=== PATIENT | female | born 1940 | race Caucasian/White ===

== ENCOUNTER 2016-11-27 17:48 | Inpatient (IN) ==
[2016-11-27] MEDS ORDERED: ONDANSETRON 4 MG/2 ML VIAL IV STA (19:45)
[2016-11-27] MEDS ORDERED: PANTOPRAZOLE 40 MG VIAL IV STA (19:45)
[2016-11-27] MEDS ORDERED: SODIUM CHLORIDE 0.9% 500 ML IV STA (19:45)
--- NOTE | 2016-11-27 19:49 | Emergency Department Note ---
IAngle Emily, am scribing for, and in the presence of, Palmer Davis MD 19: 48. Susan Mckeon Charles R, MD, personally performed the services described in this documentation, ascribed by Elsi Barbour in my presence, and it is both accurate and complete 949 . Arrival - Arrival Chief Complaint: Non-Specific Stated Complaint: ANEMIC ED Nursing Triage Note: PT TO TRIAGE VIA WC WITH C/O HAVING ABNORMAL LABS . WAS CALLED BY DR. HAHN OFFICE TODAY AND WAS TOLD THAT H & H WAS LOW. Mode of Arrival: Wheelchair Limitations: No Limitations Source: Patient Time Seen by Provider: 11/27/16 19:22 - History of Present Illness HPI Narrative: Pt is a 76 y/o female who came to ED from Dr. Santiago's office for further evaluation of H&H low. Pt notes having SOB, weakness, and melena recently. She went to ED in [place], [place], on of last week for not moving much air that her home health nurse stated, but nothing was found then. Pt reports being former smoker, quitting 2 years ago, and uses at home O2 daily. Pt does take baby aspirin and Eliquis for Afib. She has pain in left foot after dropping frozen water bottle on top of foot this past weekend. 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 Martinez. Onset (ago): hour(s) Consistency: constant Severity: mild Severity scale (1-10): 3 Quality: fullness Allergies/Adverse Reactions: Allergies Allergy/AdvReac Type Severity Reaction Status Date / Time acetaminophen [From [place]] Allergy ITCHING Verified 11/27/16 18:14 cefuroxime [From Ce[place]in] Allergy ITCHING Verified 11/27/16 18:14 hydrocodone [From [place]] Allergy ITCHING Verified 11/27/16 18:14 ibuprofen Allergy ITCHING Verified 11/27/16 18:14 lisinopril Allergy Swelling Verified 11/27/16 18:14 of Lip/Tongue/Throat Penicillins Allergy Unknown/Unable Verified 11/27/16 18:14 to obtain Home Medications: Home Medications Medication Instructions Recorded Confirmed Type Aspirin EC Tab 81 mg PO QAM 02/28/16 11/27/16 History Dexlansoprazole [Dexilant] 60 mg PO QAM 02/28/16 11/27/16 History Theophylline ER Tab (24 Hr) 400 mg PO QAM 02/28/16 11/27/16 History hydroCHLOROthiazide 25 mg PO QAM 02/28/16 11/27/16 History [Hydrochlorothiazide] lamoTRIgine [Lamotrigine Tab] 25 mg PO BID 02/28/16 11/27/16 History Apixaban [Eliquis] 5 mg PO BID #60 tablet 03/01/16 11/27/16 Rx rOPINIRole [Requip] 0.25 mg PO BEDTIME #30 tablet 03/01/16 11/27/16 Rx Albuterol Sulfate [Ventolin HFA] 1 puff PO Q4H PRN 11/27/16 11/27/16 History Azithromycin [Azithromycin Z Pack] 250 mg PO DIRECTED 11/27/16 11/27/16 History Furosemide Tab [Lasix Tab] 10 mg PO QAM 11/27/16 11/27/16 History Ipratropium/Albuterol Inhaler 2 puff PO QID PRN 11/27/16 11/27/16 History [Combivent Respimat Inhaler] Linaclotide [Linzess] 290 mcg PO QAM 11/27/16 11/27/16 History Pantoprazole Tab [Protonix Tab] 40 mg PO QAM 11/27/16 11/27/16 History Potassium Chloride 10 meq PO BEDTIME 11/27/16 11/27/16 History Tramadol HCl [Tramadol Tab] 50 mg PO TID PRN 11/27/16 11/27/16 History dilTIAZem HCl [Diltiazem ER (24 360 mg PO QAM 11/27/16 11/27/16 History hr)] predniSONE TAB [PredniSONE] 10 mg PO QDX21D 11/27/16 11/27/16 History Review of System - Review of System 12 point system: reviewed and no additional remarkable complaints except as stated - Review of System Constitutional: Present: weakness. Absent: fever Respiratory: Present: respiratory distress. Absent: cough Cardiovascular: Absent: chest pain, dyspnea on exertion Gastrointestinal: Present: melena. Absent: abdominal pain, nausea, vomiting, diarrhea Musculoskeletal: Present: leg pain (left foot pain from dropping water bottle on foot). Absent: arm pain, neck pain Skin: Absent: rash Neurological: Absent: headache Medical,Surgical,& Family Hx - Medical History Cardio: History of: Hypertension Psychological: No history of: Anxiety Disorders, ADHD, Behavior Problems, Bipolar Disorder, Depression, Previous Suicide Attempt, Psychiatric/Substance Abuse Tx, Schizophrenia, Violent Behavior, Psychiatric Problems Neurology: History of: Vertigo No history of: Brain Aneurysm, Cerebral Hemorrhage, Migraine, Peripheral Neuropathy, Seizures HEENT: No history of: Ear Problem, Eye Problem, Dental Problems, Glaucoma, Oral Cancer, HEENT Problems Endocrine: No history of: Adrenal Disease, Diabetes Mellitus (IDDM), Diabetes Mellitus ( NIDDM), Thyroid Disorder, Endocrine Cancer, Endocrine Problems Rheumatology: No history of;: Psoriasis, Sjogrens Respiratory: History of: Asthma, Bronchitis, COPD No history of: Intubation, Obstructive Sleep Apnea, Pulmonary Hypertension, Pneumonia, Lung Cancer, Respiratory Problems Renal: No history of: Renal Failure, Renal Problems Genitourinary: History of: Recurring Urinary Tract Infections No history of: Bladder Problem, Kidney Stones, Genitourinary Cancer Musculoskeletal: History of: Back/Neck Problems No history of: Amputation Hematology: No history of: Anemia, Blood Transfusion Reaction, Bleeding Problems, Clotting Problems, Sickle Cell Disease, Hematologic Cancer, Blood Disorders Other: No history of: Anesthesia Reactions, Anaphylaxis, Cancer, Eczema, HIV, Malignant Hyperthermia, MRSA, Vancomycin-Resistant Enterococci, Skin Problems, Miscellaneous Medical Problems - Surgical History Cardiac Surgeries: Patient Denies: Femoral-Popliteal Bypass Graft, Cardiac Catheterization, Cardiac Surgery, Carotid Endarterectomy, Internal Defibrillator Thoracic Surgeries: Patient denies;: Kidney (Renal Surgery), Lithotripsy, Nephrectomy, Organ Transplant, Lobectomy Neurologic Surgeries: Patient denies: Brain Aneurysm, Cerebral Hemorrhage, Neurologic Surgery HEENT Surgeries: Patient denies: Carotid Endarterectomy, Eye Surgery, Thyroid Surgery, Tonsilectomy & Adenoidectomy Abdominal Surgeries: Surgical HX of: Colonoscopy Patient denies: Abdominal Surgery, Appendectomy, Cholecystectomy Reproductive Surgeries: Surgical HX of;: Tubal Ligation Patient denies;: Cystoscopy, Genitourinary Surgery, Hysterectomy Orthopedic Surgeries: Patient denies;: Implanted Devices, Orthopedic Surgery, Spinal Surgery, Total Hip Replacement - Family History Family History: Reports;: Family Cancer, Family Heart Disease (mother,daughter) , Family Hypertension Denies;: Family Anesthesia Reaction, Family Diabetes, Family Psychiatric Problems, Family Stroke - Social History Smoking Status: Former smoker Frequency of Alcohol Use: None Type of Drug Use: None Marital Status: Single Lives With:: Alone Functional capacity: independent ambulation Exam Vital Signs: Vital Signs Temperature 98.5 F 11/27/16 19:15 Pulse Rate 78 11/27/16 20:47 Respiratory Rate 20 11/27/16 20:47 Blood Pressure 140/95 11/27/16 19:15 O2 Sat by Pulse Oximetry 99 11/27/16 20:47 - General General appearance: alert, in no apparent distress, other (smoker's voice and face) - Head Head exam: Present: atraumatic, normocephalic - Eye Eye exam: Present: PERRL, EOMI - ENT ENT exam: Present: mucous membranes moist. Absent: mucous membranes dry - Neck Neck exam: Present: full ROM - Chest Chest inspection: Present: symmetric chest wall rise (barreled chest) - Respiratory Respiratory exam: Present: rales (at base, bilaterally), rhonchi (bilaterally), wheezes (bilaterally). Absent: normal lung sounds bilaterally (decreased breath sounds, bilaterally) - Cardiovascular Cardiovascular exam: Present: regular rate, normal rhythm, normal heart sounds - Rectal Exam Rectal exam: Present: heme (+) stool - Extremities Exam Extremities exam: Present: full ROM, tenderness ( old ecchymosis on left distal foot). Absent: pedal edema - Neurological Exam Neurological exam: Present: alert, oriented X3, CN II-XII intact. Absent: motor sensory deficit - Psychiatric Psychiatric exam: Present: normal affect, normal mood - Skin Skin exam: Present: warm, dry Course - Consultations Consultation #1: Hospitalist will admit patient Time: 21:28 Results - Labs CBC & BMP: 11/27/16 19:20 11/27/16 19:20 Lab Results: I have reviewed the patients labs Labs: Laboratory Tests 11/27/16 11/27/16 19:20 19:20 WBC 19.2 H RBC 3.16 L Hgb 6.8 L Hct 23.0 L MCV 72.8 L MCH 22 L MCHC 29.6 L Plt Count 396 Lymph % (Auto) 14.7 L Neut # (Auto) 14.1 H [place] # (Auto) 1.8 H Sodium 131 L Potassium 3.1 L Chloride 92 L Carbon Dioxide 33 H Anion Gap 9.1 BUN 20 H Creatinine 0.60 GFR Calculation 84 BUN/Creatinine Ratio 33.00 H Glucose 137 H Calculated Osmolality 266.7 L Calcium 8.7 Magnesium 2.0 Total Bilirubin 0.50 AST 34 ALT 126 H Alkaline Phosphatase 65 Troponin I 0.515 H - Diagnostic Findings Procedure: Abdominal x-ray: report reviewed by me (with complete decub: 1. Fecal impaction. Mild nonspecific gaseous distention of bowel. 2. Atherosclerosis. 3. Possible hepatomegaly.), Chest x-ray: report reviewed by me (Mild cardiomeagly and venous congestion. Chronic lung changes.) Disposition Clinical Impression: COPD (chronic obstructive pulmonary disease), Acute blood loss anemia, Elevated troponin, Atrial fib/flutter, transient, Generalized weakness, Exertional dyspnea, Chronic home O2 dependent, Leukocytosis Case discussed with: patient, patient's family Disposition: Still a Patient Condition: Guarded Time of Disposition: 21:29
[2016-11-27] MEDS ORDERED: ONDANSETRON 4 MG/2 ML VIAL ONE (19:53)
[2016-11-27] MEDS ORDERED: PANTOPRAZOLE 40 MG VIAL IV ONE (19:53)
[2016-11-27 20:07] LABS: Basophils % 0.2 % (0.0-0.8); Eosinophils # 0.1 10*3/uL (0.0-0.87); Eosinophils % 0.4 % (0.00-10.9); Hemoglobin 6.8 GM/DL (12.0-16.0); Immature Granulocytes % 1.7 %; Immature Granulocytes Absolute 0.32 #; Lymphocytes # 2.8 10*3/uL (1.4-4.0); Lymphocytes % 14.7 % (21.3-54.2); Mean Corpuscular HGB Conc 29.6 GM/DL (32-36); Mean Corpuscular Hemoglobin 22 PG (27-34); Mean Corpuscular Volume 72.8 FL (87-102); Mean Platelet Volume 10.8 FL (9.6-12.0); Monocytes # 1.8 10*3/uL (0.11-0.8); Monocytes % 9.3 % (1.7-12.7); Neutrophils # 14.1 10*3/uL (1.4-7.4); Neutrophils % 73.7 % (38.7-73.9); Platelet Count 396 T/CUMM (130-400); Red Blood Count 3.16 MC/CUMM (3.8-5.5); Red Cell Distribution Width 15.6 % (9.3-17.3); White Blood Count 19.2 T/CUMM (4-12)
[2016-11-27 20:13] LABS: INR 1.1
[2016-11-27 20:22] LABS: Albumin 3.7 G/DL (3.4-5.0); Bilirubin,Total 0.5 MG/DL (0.2-1.0); Calcium 8.7 MG/DL (8.5-10.1); Osmolality,Calculated 266.7 MOS/KG (273-304); Potassium 3.1 MMOL/L (3.5-5.1); Total Protein 6.4 G/DL (6.4-8.3)
[2016-11-27 20:23] LABS: Troponin I Only 0.515 NG/ML (0.00-0.045)
--- NOTE | 2016-11-27 20:25 | XRay Report ---
Portable chest. Indication: Shortness of breath. Comparison: February 28, 2016. The heart is enlarged. There is left atrial prominence. There is calcific plaque present within the aortic knob. The pulmonary vasculature is prominent. The lung denise are hyperexpanded. Fibrotic changes are noted, worse in the bases. No pneumothorax. No pleural effusion. Chronic bony changes are noted. Impression: Mild cardiomegaly and venous congestion. Chronic lung changes. PROCEDURE INTERPRETED AT [facility] DEPARTMENT OF RADIOLOGY Final Report Signed by: Dr. Mine Trotter
[2016-11-27] MEDS ORDERED: FUROSEMIDE 40 MG/4 ML VIAL IV STA (20:27)
--- NOTE | 2016-11-27 20:27 | XRay Report ---
Abdomen series complete. Indication: Generalized abdominal pain. There is heavy splenic artery calcification and also calcification within the abdominal aorta. No free air. Possible enlargement of the liver. Mild nonspecific bowel gas pattern, with mild gaseous distention of small and large intestine and a fecal impaction. No abnormal calcifications over the renal outlines. Degenerative changes of the spinal column and hips. Impression: 1. Fecal impaction. Mild nonspecific gaseous distention of bowel. 2. Atherosclerosis. 3. Possible hepatomegaly. PROCEDURE INTERPRETED AT [facility] DEPARTMENT OF RADIOLOGY Final Report Signed by: Dr. Mine Trotter
[2016-11-27] MEDS ORDERED: methylPREDNISolone SOD SUC 125 MG/2 ML VIAL IV STA (20:28)
[2016-11-27] MEDS ORDERED: ALBUTEROL/IPRATROPIUM 3 ML NEB RESP TX STA (20:28)
[2016-11-27] MEDS ORDERED: methylPREDNISolone SOD SUC 125 MG/2 ML VIAL ONE (20:55)
[2016-11-27] MEDS ORDERED: FUROSEMIDE 40 MG/4 ML VIAL ONE (20:55)
[2016-11-27] MEDS ORDERED: POTASSIUM CHLORIDE 20 MEQ TABLET PO STA (21:27)
[2016-11-27] MEDS ORDERED: POTASSIUM CHLORIDE 20 MEQ TABLET PO ONE (21:49)
[2016-11-27] MEDS ORDERED: traMADol 50 MG TABLET PO PRN (22:34)
[2016-11-28] MEDS ORDERED: SODIUM CHLORIDE 0.9% 250 ML IV PRN (00:45)
--- NOTE | 2016-11-28 00:47 | Hospitalist History & Physical ---
Assessment and Plan - Time spent with patient Time spent with patient: Greater than 30 minutes (1) Acute blood loss anemia Status: Acute Assessment and plan: Admit to hospitalist services. Telemetry. She reports black tarry stools x 2 months. Consult GI. Transfuse 2 units PRBC. H/H 1 hour post transfusion. Repeat CBC in am. Current Visit: Yes (2) Elevated troponin Status: Acute Assessment and plan: Likely due to demand ischemia from anemia. Transfuse 2 units PRBC. Serial Troponins. Consult Cardiology. Current Visit: Yes (3) Leukocytosis Status: Acute Assessment and plan: Currently being treated with Z-pack and Prednisone 10 mg PO x 21 days; continue. Repeat CBC in am. Current Visit: Yes (4) Hyperglycemia Status: Acute Assessment and plan: BG was 137 in ED. Patient denies history of DM. Check A1c in am. Current Visit: Yes (5) Hypertension Status: Acute Assessment and plan: Continue home medications. Monitor. Current Visit: Yes (6) COPD (chronic obstructive pulmonary disease) Status: Acute Assessment and plan: Currently being treated with Z-pack and Prednisone 10 mg PO daily x 21 days; Continue. DuoNebs Q4 hours PRN. Current Visit: Yes (7) History of atrial fibrillation Status: Chronic Assessment and plan: Hold Eliquis and ASA. Continue home dose of Cardizem. Telemetry. Current Visit: No (8) DVT prophylaxis Status: Acute Assessment and plan: Active GI bleeding present. Use SCDs. Current Visit: Yes History of Present Illness Chief complaint: Abnormal labs History of present illness: Ms. Stanford is a 76 year old female with a past medical history of HTN, A-fib, COPD, Arthritis, and Asthma [facility] of abnormal labs. Ms. Stanford reports that her PCP, Dr. Santiago, sent her to the ED after her labs showed that she was anemic. She further reports that she has had black stools for the last 2 months and occasional SOB on exertion. She denies chest pain. She uses home O2 and takes Eliquis BID and ASA 81 mg daily for afib. She was recently placed on a Z-pack and prednisone for COPD exacerbation. Her work up in the ED was significant for Heme (+) stool, WBC 19.2, H/H 6.8/23, Na 131, BG 137, and Troponin 0.515. Currently, she has no complaints. Hospitalist services were consulted, and the patient will be admitted for further evaluation and treatment. Home medications were reviewed and reconciled. This patient is a DNR. Home Medications Medication Instructions Recorded Confirmed Type Aspirin EC Tab 81 mg PO QAM 02/28/16 11/27/16 History Dexlansoprazole [Dexilant] 60 mg PO QAM 02/28/16 11/27/16 History Theophylline ER Tab (24 Hr) 400 mg PO QAM 02/28/16 11/27/16 History hydroCHLOROthiazide 25 mg PO QAM 02/28/16 11/27/16 History [Hydrochlorothiazide] lamoTRIgine [Lamotrigine Tab] 25 mg PO BID 02/28/16 11/27/16 History Apixaban [Eliquis] 5 mg PO BID #60 tablet 03/01/16 11/27/16 Rx rOPINIRole [Requip] 0.25 mg PO BEDTIME #30 tablet 03/01/16 11/27/16 Rx Albuterol Sulfate [Ventolin HFA] 1 puff PO Q4H PRN 11/27/16 11/27/16 History Azithromycin [Azithromycin Z Pack] 250 mg PO DIRECTED 11/27/16 11/27/16 History Furosemide Tab [Lasix Tab] 10 mg PO QAM 11/27/16 11/27/16 History Ipratropium/Albuterol Inhaler 2 puff PO QID PRN 11/27/16 11/27/16 History [Combivent Respimat Inhaler] Linaclotide [Linzess] 290 mcg PO QAM 11/27/16 11/27/16 History Pantoprazole Tab [Protonix Tab] 40 mg PO QAM 11/27/16 11/27/16 History Potassium Chloride 10 meq PO BEDTIME 11/27/16 11/27/16 History Tramadol HCl [Tramadol Tab] 50 mg PO TID PRN 11/27/16 11/27/16 History dilTIAZem HCl [Diltiazem ER (24 360 mg PO QAM 11/27/16 11/27/16 History hr)] predniSONE TAB [PredniSONE] 10 mg PO QDX21D 11/27/16 11/27/16 History Allergies Allergy/AdvReac Type Severity Reaction Status Date / Time acetaminophen [From [employer] Allergy ITCHING Verified 11/27/16 18:14 cefuroxime [From Ceftin] Allergy ITCHING Verified 11/27/16 18:14 hydrocodone [From [place]] Allergy ITCHING Verified 11/27/16 18:14 ibuprofen Allergy ITCHING Verified 11/27/16 18:14 lisinopril Allergy Swelling Verified 11/27/16 18:14 of Lip/Tongue/Throat Penicillins Allergy Unknown/Unable Verified 11/27/16 18:14 to obtain Medical,Surgical,& Family Hx - Medical History Cardio: History of: Cardiac Dysrhythmia (afib), Hypertension Neurology: History of: Vertigo Respiratory: History of: Asthma, Bronchitis, COPD Genitourinary: History of: Recurring Urinary Tract Infections Musculoskeletal: History of: Back/Neck Problems, Musculoskeletal Problems ( arthritis) - Surgical History Abdominal Surgeries: Surgical HX of: Colonoscopy (reports cancerous polyp removed. ) Reproductive Surgeries: Surgical HX of;: Tubal Ligation - Family History Family History: Reports;: Family Cancer, Family Heart Disease (mother,daughter) , Family Hypertension - Social History Smoking Status: Former smoker (Reports quitting 2 years ago.) Have you smoked in the last 12 months: No Frequency of Alcohol Use: None Type of Drug Use: None Marital Status: Lives With:: Ex- Functional capacity: uses cane/walker 12 point system: reviewed and no additional remarkable complaints except as stated - Constitutional Constitutional: Absent: fever(s), malaise, weakness - EENT Eyes: Absent: blurry vision, diplopia, loss of vision Ears: Absent: decreased hearing, ear discharge, ear pain Nose, mouth and throat: Absent: headache(s), nasal congestion, sore throat - Cardiovascular Cardiovascular: Present: dyspnea on exertion. Absent: chest pain at rest, chest pain with activity, edema, orthopnea, palpitations - Respiratory Respiratory: Present: cough, dyspnea on exertion, wheezing - Gastrointestinal Gastrointestinal: Present: melena. Absent: abdominal pain, diarrhea, nausea, vomiting - Genitourinary Genitourinary: Absent: dysuria, urinary frequency - Musculoskeletal Musculoskeletal: Present: arthralgias. Absent: joint swelling, muscle weakness , myalgias - Neurological Neurological: Absent: confusion, numbness, paresthesias, syncope - Psychiatric Psychiatric: Absent: anxiety, depression - Endocrine Endocrine: Absent: cold intolerance, polydipsia, polyphagia, polyuria - Hematologic/Lymphatic Hematologic/Lymphatic: Present: easy bruising. Absent: easy bleeding Exam - Constitutional Vitals: Period Temp Pulse Resp BP Sys/Wahl Pulse Ox Last 24 Hr 98.5 F-98.5 F 74-79 17-22 140-140/95-95 94-99 Exam: Constitutional System: Afebrile. Awake, alert and oriented x 3. No distress. No tremulousness. Fidgety. Head: Normocephalic, atraumatic. Ears, Nose and Throat System: No pain or tenderness. No epistaxis or discharge. Eyes System: Pupils equal, round, and reactive. Extraocular muscles intact. Neck: Supple, without adenopathy, No jugular venous distention. No thyromegaly, neck mass, or prior surgery apparent. Respiratory System: Rhonchi and wheezing throughout. Cardiovascular System: Heart with regular rate and rhythm. No murmur. GI System: Abdomen soft, nontender. Normo active bowel sounds present. Musculoskeletal System: Limbs with no pedal edema. Full distal pulses. Normal capillary refill. Bruising on right foot and toes. Neurological System: No discernable sensory deficit. No aphasia Psychiatric System: Conversation is rational Results - Labs CBC & BMP: 11/28/16 01:20 11/28/16 01:20 Lab Results: I have reviewed the past 24 hour labs - Diagnostic Findings Procedure: Abdominal x-ray: report reviewed by me, Chest x-ray: report reviewed by me Quality Measures - VTE Contraindication to Pharmacological VTE Prophylaxis: Active Bleeding
[2016-11-28 01:25] LABS: Basophils % 0.2 % (0.0-0.8); Eosinophils % 0.1 % (0.00-10.9); Hematocrit 24.4 VOL% (35.7-47.0); Hemoglobin 7.1 GM/DL (12.0-16.0); Immature Granulocytes % 2.3 %; Immature Granulocytes Absolute 0.44 #; Lymphocytes # 0.6 10*3/uL (1.4-4.0); Lymphocytes % 3.1 % (21.3-54.2); Mean Corpuscular HGB Conc 29.1 GM/DL (32-36); Mean Corpuscular Hemoglobin 21 PG (27-34); Mean Corpuscular Volume 73.5 FL (87-102); Mean Platelet Volume 10.7 FL (9.6-12.0); Monocytes # 0.3 10*3/uL (0.11-0.8); Monocytes % 1.5 % (1.7-12.7); NRBC # 0.09 10*3/uL; Neutrophils # 17.6 10*3/uL (1.4-7.4); Neutrophils % 92.8 % (38.7-73.9); Platelet Count 430 T/CUMM (130-400); Red Blood Count 3.32 MC/CUMM (3.8-5.5); Red Cell Distribution Width 15.7 % (9.3-17.3)
[2016-11-28] MEDS: ALBUTEROL/IPRATROPIUM 3 ML NEB RESP TX PRN ×2 (01:35→07:50)
[2016-11-28 01:54] LABS: Band Neutrophils 1 % (0-10); Lymphocytes 2 % (20-55); Nucleated Red Blood Cells 1 (0-5); Segmented Neutrophils 97 % (50-85); Total Cells Counted 100
[2016-11-28 01:55] LABS: Anisocytosis 1+; Ovalocytes Few; Platelet Estimate Normal
[2016-11-28 02:00] LABS: Albumin 3.9 G/DL (3.4-5.0); Bilirubin,Total 0.6 MG/DL (0.2-1.0); Calcium 8.9 MG/DL (8.5-10.1); Magnesium 2.2 MG/DL (1.8-2.4); Osmolality,Calculated 272.2 MOS/KG (273-304); Potassium 3.8 MMOL/L (3.5-5.1); Total Protein 6.8 G/DL (6.4-8.3)
--- NOTE | 2016-11-28 06:02 | EKG Report ---
Stationary ECG Study [facility] ER Test Date: 11/27/2016 8:36:31 PM Pat Name: IDANIA POE Department: Room: 289 Gender: F Traffic Administrator: : 1940 Requested by: Palmer Elizabeth Order Number: [id number] Reading MD: UNIQUE MACIEL Intervals [place] Rate: 80 P: 75 GA: 155 QRS: 78 QRSD: 102 T: 79 QT: 364 QTc: 401 Interpretive Statements SINUS RHYTHM WITH OCCASIONAL SUPRAVENTRICULAR PREMATURE COMPLEXES ST DEVIATION AND MODERATE T-WAVE ABNORMALITY, CONSIDER LATERAL ISCHEMIA NOT ON PREVIOUS TRACING FROM 03/01/16 Electronically Signed On 11-30-16 18:51:11 CDT by UNIQUE MACIEL [email or web address]
[2016-11-28] MEDS ORDERED: FUROSEMIDE 40 MG/4 ML VIAL ONE (08:15)
[2016-11-28] MEDS: FUROSEMIDE 40 MG/4 ML VIAL IV SCH (08:23)
[2016-11-28] MEDS ORDERED: FUROSEMIDE 20 MG TABLET PO SCH (09:00)
[2016-11-28] MEDS: predniSONE 10 MG TABLET PO SCH (09:44)
[2016-11-28] MEDS: DILTIAZEM CD 180 MG CAPSULE PO SCH (09:45)
[2016-11-28] MEDS: PANTOPRAZOLE 40 MG TABLET PO SCH (09:45)
[2016-11-28] MEDS: hydroCHLOROthiazide 25 MG TABLET PO SCH (09:48)
[2016-11-28 09:53] LABS: Apearance,Urine CLEAR (Clear); Bilirubin,Urine Negative (Negative); Blood, Urine Moderate mg/dL (Negative); Glucose,Urine (UA) Negative (Negative); Ketones,Urine Negative (Negative); Mucus,Urine Occasional /LPF (Occasional); Nitrite,Urine Negative (Negative); Protein,Urine Negative; RBC,Urine 20 /HPF (0-4); Urine Color Colorless (Yellow); Urine Specific Gravity 1.004 (1.001-1.035); Urine Urobilinogen < 2.0 EU/DL (0.2-1.0); WBC,Urine 1 /HPF (0-6)
[2016-11-28] MEDS: THEOPHYLLINE ER (24 HR) 400 MG TABLET PO SCH (11:08)
[2016-11-28] MEDS: lamoTRIgine 25 MG TABLET PO SCH ×2 (11:08→22:02)
--- NOTE | 2016-11-28 11:22 | Gastrointestinal Consult Note ---
Assessment and Plan (1) Anemia Status: Acute Assessment and plan: 11/28-admitted with low H&H from PCP office with reports of increased fatigue and weakness with shortness of breath over the last several weeks. no prior history of GI bleeding in the past. On Eliquis therapy for atrial fibrillation with last dose on Sunday. H&H 09/01 on admission, now 10/02 post transfusion. Heme positive stools. Obtain endoscopy records from [facility]. Plan an addendum to followed by Dr. Traylor. Current Visit: Yes History of Present Illness Chief complaint: Melena anemia History of present illness: Ms. Stanford is a 76 year old female who was admitted to the hospital on yesterday after findings of a low H&H at her PCP office. Patient has a prior history of hypertension, atrial fibrillation (anticoagulated with Eliquis), COPD, arthritis , and asthma. Patient states that she has not felt well over the last several weeks with increased weakness and fatigue. She also states that she has had dark stools over the last 2 months. Patient recently has had an increase in shortness of breath therefore she presented to see Dr. Santiago for checkup. At that time she was found to have a low H&H and was referred to the emergency room for further evaluation. On admission, patient was found to have an H&H of 09/01. She has a MCV of 72. She was also noted to have elevated troponin therefore placed on telemetry for closer observation. Patient states that she has not been anemic in the past and not require blood transfusions. She states that she has never had a GI bleed before except following a colonoscopy earlier this year. Patient denies any increase in upper GI symptoms including dyspepsia , dysphagia, GERD, increased belching or bloating. Patient is noted to have a 22 pound weight loss since February of this past year however this was warranted and patient states she has been attempting to lose weight by changing her dietary patterns. She is also noted on admission to be on antibiotics for treatment of a sinus infection. She states that she has never had a peptic ulcer in the past however has had upper scope done at [facility]. She was noted to be heme positive in the emergency room as well. Her baseline H&H in February of this past year was noted to be at 14/42. She has received 2 units of packed red blood cells today. Her last colonoscopy reportedly was in April of this year by Dr. Rouse at [facility] in which she had polyps removed. She is noted to be on Eliquis for history of atrial fibrillation and has been on this for approximately 2 years with no prior history of GI bleeding. Her last reported dose was on Sunday. She denies any NSAID use. Home Medications Medication Instructions Recorded Confirmed Type Aspirin EC Tab 81 mg PO QAM 02/28/16 11/27/16 History Dexlansoprazole [Dexilant] 60 mg PO QAM 02/28/16 11/27/16 History Theophylline ER Tab (24 Hr) 400 mg PO QAM 02/28/16 11/27/16 History hydroCHLOROthiazide 25 mg PO QAM 02/28/16 11/27/16 History [Hydrochlorothiazide] lamoTRIgine [Lamotrigine Tab] 25 mg PO BID 02/28/16 11/27/16 History Apixaban [Eliquis] 5 mg PO BID #60 tablet 03/01/16 11/27/16 Rx rOPINIRole [Requip] 0.25 mg PO BEDTIME #30 tablet 03/01/16 11/27/16 Rx Albuterol Sulfate [Ventolin HFA] 1 puff PO Q4H PRN 11/27/16 11/27/16 History Azithromycin [Azithromycin Z Pack] 250 mg PO DIRECTED 11/27/16 11/27/16 History Furosemide Tab [Lasix Tab] 10 mg PO QAM 11/27/16 11/27/16 History Ipratropium/Albuterol Inhaler 2 puff PO QID PRN 11/27/16 11/27/16 History [Combivent Respimat Inhaler] Linaclotide [Linzess] 290 mcg PO QAM 11/27/16 11/27/16 History Pantoprazole Tab [Protonix Tab] 40 mg PO QAM 11/27/16 11/27/16 History Potassium Chloride 10 meq PO BEDTIME 11/27/16 11/27/16 History Tramadol HCl [Tramadol Tab] 50 mg PO TID PRN 11/27/16 11/27/16 History dilTIAZem HCl [Diltiazem ER (24 360 mg PO QAM 11/27/16 11/27/16 History hr)] predniSONE TAB [PredniSONE] 10 mg PO [id number] 11/27/16 11/27/16 History Allergies Allergy/AdvReac Type Severity Reaction Status Date / Time acetaminophen [From [place]] Allergy ITCHING Verified 11/27/16 18:14 cefuroxime [From Ceftin] Allergy ITCHING Verified 11/27/16 18:14 hydrocodone [From [place]] Allergy ITCHING Verified 11/27/16 18:14 ibuprofen Allergy ITCHING Verified 11/27/16 18:14 lisinopril Allergy Swelling Verified 11/27/16 18:14 of Lip/Tongue/Throat Penicillins Allergy Unknown/Unable Verified 11/27/16 18:14 to obtain Medical,Surgical,& Family Hx - Medical History Cardio: History of: Cardiac Dysrhythmia (afib), Hypertension Psychological: No history of: Anxiety Disorders, ADHD, Behavior Problems, Bipolar Disorder, Depression, Previous Suicide Attempt, Psychiatric/Substance Abuse Tx, Schizophrenia, Violent Behavior, Psychiatric Problems Neurology: History of: Vertigo No history of: Brain Aneurysm, Cerebral Hemorrhage, Migraine, Peripheral Neuropathy, Seizures HEENT: No history of: Ear Problem, Eye Problem, Dental Problems, Glaucoma, Oral Cancer, HEENT Problems Endocrine: No history of: Adrenal Disease, Diabetes Mellitus (IDDM), Diabetes Mellitus ( NIDDM), Thyroid Disorder, Endocrine Cancer, Endocrine Problems Rheumatology: No history of;: Psoriasis, Sjogrens Respiratory: History of: Asthma, Bronchitis, COPD No history of: Intubation, Obstructive Sleep Apnea, Pulmonary Hypertension, Pneumonia, Lung Cancer, Respiratory Problems Renal: No history of: Renal Failure, Renal Problems Genitourinary: History of: Recurring Urinary Tract Infections No history of: Bladder Problem, Kidney Stones, Genitourinary Cancer Musculoskeletal: History of: Back/Neck Problems, Musculoskeletal Problems ( arthritis) No history of: Amputation Hematology: No history of: Anemia, Blood Transfusion Reaction, Bleeding Problems, Clotting Problems, Sickle Cell Disease, Hematologic Cancer, Blood Disorders Other: No history of: Anesthesia Reactions, Anaphylaxis, Cancer, Eczema, HIV, Malignant Hyperthermia, MRSA, Vancomycin-Resistant Enterococci, Skin Problems, Miscellaneous Medical Problems - Surgical History Cardiac Surgeries: Patient Denies: Femoral-Popliteal Bypass Graft, Cardiac Catheterization, Cardiac Surgery, Carotid Endarterectomy, Internal Defibrillator Thoracic Surgeries: Patient denies;: Kidney (Renal Surgery), Lithotripsy, Nephrectomy, Organ Transplant, Lobectomy Neurologic Surgeries: Patient denies: Brain Aneurysm, Cerebral Hemorrhage, Neurologic Surgery HEENT Surgeries: Patient denies: Carotid Endarterectomy, Eye Surgery, Thyroid Surgery, Tonsilectomy & Adenoidectomy Abdominal Surgeries: Surgical HX of: Colonoscopy (reports cancerous polyp removed. ) Patient denies: Abdominal Surgery, Appendectomy, Cholecystectomy Reproductive Surgeries: Surgical HX of;: Tubal Ligation Patient denies;: Cystoscopy, Genitourinary Surgery, Hysterectomy Orthopedic Surgeries: Patient denies;: Implanted Devices, Orthopedic Surgery, Spinal Surgery, Total Hip Replacement - Family History Family History: Reports;: Family Cancer, Family Heart Disease (mother,daughter) , Family Hypertension Denies;: Family Anesthesia Reaction, Family Diabetes, Family Psychiatric Problems, Family Stroke - Social History Smoking Status: Former smoker (Reports quitting 2 years ago.) Frequency of Alcohol Use: None Type of Drug Use: None 12 point system: reviewed and no additional remarkable complaints except as stated - Constitutional Constitutional: Present: as per HPI, fatigue, weakness - EENT Eyes: Present: as per HPI Ears: Present: as per HPI Nose, mouth and throat: Present: as per HPI - Cardiovascular Cardiovascular: Present: as per HPI, dyspnea - Respiratory Respiratory: Present: as per HPI - Gastrointestinal Gastrointestinal: Present: as per HPI, melena - Genitourinary Genitourinary: Present: as per HPI - Musculoskeletal Musculoskeletal: Present: as per HPI - Neurological Neurological: Present: as per HPI - Psychiatric Psychiatric: Present: as per HPI - Endocrine Endocrine: Present: as per HPI - Hematologic/Lymphatic Hematologic/Lymphatic: Present: as per HPI Exam - Constitutional Vitals: Period Temp Pulse Resp BP Sys/Wahl Pulse Ox Last 24 Hr 97.6 F-98.9 F 70-97 17-22 98-149/49-95 81-99 General appearance: normal weight, no acute distress - Head Head exam: Present: normal inspection, normocephalic - Eye Eye exam: Present: other (Lids and conjunctivae are unremarkable). Absent: scleral icterus - ENT ENT exam: Present: normal exam, normal oropharynx - Neck Neck exam: Present: normal inspection - Respiratory Respiratory exam: Present: clear to auscultation bilaterally. Absent: rales, rhonchi, wheezes - Cardiovascular Cardiovascular exam: Present: regular rate and rhythm. Absent: diastolic murmur , JVD, systolic murmur - GI/Abdominal GI/Abdominal exam: Present: normal bowel sounds, soft. Absent: ascites, distended, mass, organomegaly, tenderness - Extremities Exam Extremities exam: Present: normal inspection, full ROM - Back Exam Back exam: Present: normal inspection - Neurological Exam Neurological exam: Present: alert, oriented X3 - Psychiatric Psychiatric exam: Present: normal affect, normal mood - Skin Skin exam: Present: normal color, warm, dry Results - Labs CBC & BMP: 11/28/16 01:20 11/28/16 01:20 Lab Results: I have reviewed the past 24 hour labs Quality Measures - VTE Contraindication to Pharmacological VTE Prophylaxis: Active Bleeding - Stroke Symptom Onset Unknown: No
[2016-11-28] MEDS: ALBUTEROL/IPRATROPIUM 3 ML NEB RESP TX SCH ×3 (11:50→20:12)
[2016-11-28 11:58] LABS: Hematocrit 29.3 VOL% (35.7-47.0)
--- NOTE | 2016-11-28 13:43 | Hospitalist Progress Note ---
Assessment and Plan - Time spent with patient Time spent with patient: Less than 30 minutes (1) Anemia Status: Acute Assessment and plan: 11/28/16 Patient received PRBC Post-blood transfusion - H&H is now 9.0 and 29.3. Continue HOLDING Eliquis add humidification to [place] O2 Will repeat a.m. labs GI is following and greatly appreciate their assistance with care. Current Visit: Yes (2) Elevated troponin Status: Acute Assessment and plan: 11/28/16 Troponin upon arrival was 0.515 and it is trending down after receiving PRBCs for symptomatic anemia. Eliquis is being held at present, patient does have chronic A-Fib. Cardiology is following and greatly appreciate their assistance with care. Current Visit: Yes (3) Hyperglycemia Status: Acute Assessment and plan: 11/28/16 Patient denies a history of diabetes. HA1c is 6.5. Will continue to monitor glucose during hospitalization. Current Visit: Yes (4) Chronic anticoagulation Status: Chronic Assessment and plan: 11/28/16 Patient has history of Chronic A-Fib. She presented with anemia and c/ o dark tarry stools. Currently Holding Eliquis at present. Will continue to monitor for any further signs of bleeding. Current Visit: Yes Hospitalist: Subjective Interval history: Ms Stanford seen and chart reviewed. She reports the oxygen is helping but is drying her sinuses out, I will add humidification to supplemental o2. She denies any chest pain, nausea or vomiting. Exam - Constitutional Vitals: Period Temp Pulse Resp BP Sys/Wahl Pulse Ox Last 24 Hr 97.2 F-98.9 F 70-97 17-22 98-151/49-95 81-99 General appearance: normal weight, no acute distress - Head Head exam: Present: normal inspection - Eye Eye exam: Present: EOMI - Neck Neck exam: Present: normal inspection. Absent: thyromegaly - Respiratory Respiratory exam: Present: clear to auscultation bilaterally, prolonged expiratory phase, wheezes (expiratory) - Cardiovascular Cardiovascular exam: Present: regular rate and rhythm - GI/Abdominal GI/Abdominal exam: Present: normal bowel sounds, soft. Absent: tenderness, rebound - Extremities Exam Extremities exam: Present: full ROM. Absent: edema - Neurological Exam Neurological exam: Present: alert, oriented X3 - Psychiatric Psychiatric exam: Present: normal affect, normal mood. Absent: agitated, anxious - Skin Skin exam: Present: normal color, warm, dry Results - Labs CBC & BMP: 11/28/16 11:26 11/28/16 01:20 Lab Results: I have reviewed the past 24 hour labs Quality Measures - VTE Contraindication to Pharmacological VTE Prophylaxis: Active Bleeding - Stroke Symptom Onset Unknown: No
--- NOTE | 2016-11-28 15:55 | Cardiology Consult Note ---
Ozzy Mckeon Lesley, LISBETH, am scribing for, and in the presence of, Joaquin Diaz MD 15:53. Assessment and Plan - Time spent with patient Time spent with patient: Greater than 30 minutes (Record review, assessment, and documentation) (1) Chronic anticoagulation Status: Chronic Assessment and plan: 1. 76-year-old previous smoker (quit less than 2 years ago) with COPD oxygen dependent, admitted February 2016 with atrial fibrillation with RVR which reverted to normal sinus rhythm, now admits with a couple months of intermittent melena, and a number of days of increasing dyspnea on exertion and fatigue with significant anemia with hemoglobin in the 7 range now status post transfusion clinically modestly better. 2. New ST-T change, and mild troponin elevation suggests likely underlying CAD , but would treat medically given her very recent melena 3. She reports she was taking Eliquis and aspirin, obviously both need to be held for now. There is no known history of coronary artery disease or stroke by history. 4. Chads 2 vascular score of 4 5. Leukocytosis with left shift, possibly related to steroid use 6. Patient previously seen by Dr. Robledo 7. We will continue diltiazem, treated with high intensity statin therapy 8. We will follow with you 9. 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 Delatorre Ms. Stanford is a 76 year old female, who presented to [facility] ER from her PCPs clinic after abnormal labs. She reported black tarry stools for the last 2 months with worsening dyspnea on exertion. She denies chest pain. She has a history of COPD and is on home oxygen. She reports she was recently treated for COPD exacerbation with an antibiotic and steroids. She was taking Eliquis for a history of paroxysmal atrial fibrillation, and had no history of GI bleeds. Cardiac history is significant for hypertension, oxygen dependent COPD, paroxysmal atrial fibrillation with RVR, advanced age, sedentary lifestyle. The patient is known to Dr. Delatorre and was last seen at [facility] clinic 06/2016. Most recent echocardiogram done 02/2016 revealed moderate concentric left ventricular hypertrophy with diastolic dysfunction, LVEF estimated at greater than 55%, right atrium mildly enlarged, mildly thickened mitral valve with mild mitral regurgitation, trace aortic valve regurgitation, moderate tricuspid valve regurgitation, PAP 32.7. The patient was seen sitting on side of the bed today, she reports feeling much better. She denies chest pain, but reports increased dyspnea with exertion over the last 1-2 months. She admits black tarry stools for 2 months. The patient is on oxygen at home for her COPD. She no longer smokes, and states she quit sometime ago. The patient has been on Eliquis for some time due to paroxysmal atrial fibrillation. She was admitted with a hemoglobin of 6.8, hematocrit 23. INR was 1.1, sodium 131, potassium 3.1, creatinine 0.6, glucose 137, magnesium 2.0, troponin I 0.515. This was the peak troponin, and it has been trending downward. After 2 units of packed red cells, her hemoglobin and hematocrit have increased to 7/24. Vital signs have remained stable, EKG shows sinus rhythm with PVCs. Abdominal x-ray shows fecal impaction, possible hepatomegaly. Chest x-ray shows mild cardiomegaly and venous congestion, chronic lung changes. The patient complains of bilateral lower extremity edema that has worsened over the last 2-3 weeks. IMPRESSION/PLAN: 1. ELEVATED TROPONIN -likely due to demand ischemia from anemia. Trending downward and no anginal symptoms. 2. CHRONIC ANTICOAGULATION -holding Eliquis and aspirin, likely no longer be a candidate for anticoagulation. 3. HISTORY OF ATRIAL FIBRILLATION WITH RVR -continue diltiazem, currently in sinus rhythm, will continue to monitor patient on telemetry floor. 4. ANEMIA -H&H 9 and 29 post transfusion, black tarry stools 2 months. GI is consulted to follow. CC: Chato Dunbar MD - Home Medications and Allergies Home Medications: Home Medications Medication Instructions Recorded Confirmed Type Aspirin EC Tab 81 mg PO QAM 02/28/16 11/27/16 History Dexlansoprazole [Dexilant] 60 mg PO QAM 02/28/16 11/27/16 History Theophylline ER Tab (24 Hr) 400 mg PO QAM 02/28/16 11/27/16 History hydroCHLOROthiazide 25 mg PO QAM 02/28/16 11/27/16 History [Hydrochlorothiazide] lamoTRIgine [Lamotrigine Tab] 25 mg PO BID 02/28/16 11/27/16 History Apixaban [Eliquis] 5 mg PO BID #60 tablet 03/01/16 11/27/16 Rx rOPINIRole [Requip] 0.25 mg PO BEDTIME #30 tablet 03/01/16 11/27/16 Rx Albuterol Sulfate [Ventolin HFA] 1 puff PO Q4H PRN 11/27/16 11/27/16 History Azithromycin [Azithromycin Z Pack] 250 mg PO DIRECTED 11/27/16 11/27/16 History Furosemide Tab [Lasix Tab] 10 mg PO QAM 11/27/16 11/27/16 History Ipratropium/Albuterol Inhaler 2 puff PO QID PRN 11/27/16 11/27/16 History [Combivent Respimat Inhaler] Linaclotide [Linzess] 290 mcg PO QAM 11/27/16 11/27/16 History Pantoprazole Tab [Protonix Tab] 40 mg PO QAM 11/27/16 11/27/16 History Potassium Chloride 10 meq PO BEDTIME 11/27/16 11/27/16 History Tramadol HCl [Tramadol Tab] 50 mg PO TID PRN 11/27/16 11/27/16 History dilTIAZem HCl [Diltiazem ER (24 360 mg PO QAM 11/27/16 11/27/16 History hr)] predniSONE TAB [PredniSONE] 10 mg PO QDX21D 11/27/16 11/27/16 History Allergies/Adverse Reactions: Allergies Allergy/AdvReac Type Severity Reaction Status Date / Time acetaminophen [From [place]] Allergy ITCHING Verified 11/27/16 18:14 cefuroxime [From [place]] Allergy ITCHING Verified 11/27/16 18:14 hydrocodone [From [place]] Allergy ITCHING Verified 11/27/16 18:14 ibuprofen Allergy ITCHING Verified 11/27/16 18:14 lisinopril Allergy Swelling Verified 11/27/16 18:14 of Lip/Tongue/Throat Penicillins Allergy Unknown/Unable Verified 11/27/16 18:14 to obtain - Constitutional Constitutional: Present: weakness. Absent: anorexia, chills, daytime sleepiness , frequent falls, headache(s) - EENT Nose, mouth and throat: Absent: dysphagia, epistaxis, headache(s) - Cardiovascular Cardiovascular: Present: dyspnea on exertion, edema, palpitations. Absent: chest pain at rest, chest pain with activity, diaphoresis, dyspnea - Respiratory Respiratory: Present: dyspnea on exertion. Absent: cough, hemoptysis - Gastrointestinal Gastrointestinal: Present: abdominal pain, dyspepsia, melena. Absent: coffee ground emesis, hematemesis, hematochezia, nausea, vomiting - Genitourinary Genitourinary: Absent: abnormal vaginal bleeding, difficulty urinating, dysuria - Musculoskeletal Musculoskeletal: Present: arthralgias - Neurological Neurological: Absent: abnormal gait, abnormal speech, behavioral changes, confusion - Psychiatric Psychiatric: Absent: anxiety, auditory hallucinations, confusion, depression - Endocrine Endocrine: Absent: fatigue Medical,Surgical,& Family Hx - Medical History Cardio: History of: Cardiac Dysrhythmia (afib), Hypertension Psychological: No history of: Anxiety Disorders, ADHD, Behavior Problems, Bipolar Disorder, Depression, Previous Suicide Attempt, Psychiatric/Substance Abuse Tx, Schizophrenia, Violent Behavior, Psychiatric Problems Neurology: History of: Vertigo No history of: Brain Aneurysm, Cerebral Hemorrhage, Migraine, Peripheral Neuropathy, Seizures HEENT: No history of: Ear Problem, Eye Problem, Dental Problems, Glaucoma, Oral Cancer, HEENT Problems Endocrine: No history of: Adrenal Disease, Diabetes Mellitus (IDDM), Diabetes Mellitus ( NIDDM), Thyroid Disorder, Endocrine Cancer, Endocrine Problems Rheumatology: No history of;: Psoriasis, Sjogrens Respiratory: History of: Asthma, Bronchitis, COPD No history of: Intubation, Obstructive Sleep Apnea, Pulmonary Hypertension, Pneumonia, Lung Cancer, Respiratory Problems Renal: No history of: Renal Failure, Renal Problems Genitourinary: History of: Recurring Urinary Tract Infections No history of: Bladder Problem, Kidney Stones, Genitourinary Cancer Musculoskeletal: History of: Back/Neck Problems, Musculoskeletal Problems ( arthritis) No history of: Amputation Hematology: No history of: Anemia, Blood Transfusion Reaction, Bleeding Problems, Clotting Problems, Sickle Cell Disease, Hematologic Cancer, Blood Disorders Other: No history of: Anesthesia Reactions, Anaphylaxis, Cancer, Eczema, HIV, Malignant Hyperthermia, MRSA, Vancomycin-Resistant Enterococci, Skin Problems, Miscellaneous Medical Problems - Surgical History Cardiac Surgeries: Patient Denies: Femoral-Popliteal Bypass Graft, Cardiac Catheterization, Cardiac Surgery, Carotid Endarterectomy, Internal Defibrillator Thoracic Surgeries: Patient denies;: Kidney (Renal Surgery), Lithotripsy, Nephrectomy, Organ Transplant, Lobectomy Neurologic Surgeries: Patient denies: Brain Aneurysm, Cerebral Hemorrhage, Neurologic Surgery HEENT Surgeries: Patient denies: Carotid Endarterectomy, Eye Surgery, Thyroid Surgery, Tonsilectomy & Adenoidectomy Abdominal Surgeries: Surgical HX of: Colonoscopy (reports cancerous polyp removed. ) Patient denies: Abdominal Surgery, Appendectomy, Cholecystectomy Reproductive Surgeries: Surgical HX of;: Tubal Ligation Patient denies;: Cystoscopy, Genitourinary Surgery, Hysterectomy Orthopedic Surgeries: Patient denies;: Implanted Devices, Orthopedic Surgery, Spinal Surgery, Total Hip Replacement - Family History Family History: Reports;: Family Cancer, Family Heart Disease (mother,daughter) , Family Hypertension Denies;: Family Anesthesia Reaction, Family Diabetes, Family Psychiatric Problems, Family Stroke - Social History Smoking Status: Former smoker (Reports quitting 2 years ago.) Have you smoked in the last 12 months: No Frequency of Alcohol Use: None Type of Drug Use: None Physical Examination Vital Signs Temp Pulse Resp BP Pulse Ox 98.5 F 74 17 140/95 94 L 11/27/16 18:11 11/27/16 18:11 11/27/16 18:11 11/27/16 18:11 11/27/16 18:11 Exam: General: Appears well with no apparent distress. Pleasant and cooperative. Appears comfortable. HEENT: PERRL, normocephalic, atraumatic. Mucous membranes moist. No jaundice noted. Conjunctiva moist and clear, sclerae anicteric. Neck: No JVD/HJR, no thyromegaly or lymphadenopathy noted. No carotid bruit appreciated. Cardiac: Regular rate and rhythm. No murmur rub or gallop. PMI is nondisplaced. Lungs: Mild wheezing bilaterally to auscultation without accessory muscle use to assist the respiratory pattern. Oxygen in use via nasal cannula. Abdomen: Soft, bowel sounds normoactive. Generalized tenderness to light palpation and nondistended. No abdominal bruit or thrill noted. No masses noted. Musculoskeletal: No fluid collection. Full range of motion is noted. Extremities: No clubbing, cyanosis noted. No edema noted. Upper extremity pulses 2+. Lower extremity pulses 2+. Capillary refill less than 3 seconds. Skin: Warm and dry. No unusual lesions or rashes. No skin breakdown appreciated. Neuro: Awake, alert and oriented 3. Moves all extremities well without hemiparesis or paralysis. No essential tremor is appreciated. Result/EKG - Labs CBC & BMP: 11/28/16 11:26 11/28/16 01:20 Lab Results: I have reviewed the past 24 hour labs Labs: Laboratory Results - last 24 hr 11/27/16 11/27/16 11/27/16 19:20 19:20 19:20 WBC 19.2 H RBC 3.16 L Hgb 6.8 L Hct 23.0 L MCV 72.8 L MCH 22 L MCHC 29.6 L RDW 15.6 Plt Count 396 MPV 10.8 Neut % (Auto) 73.7 Lymph % (Auto) 14.7 L Stanley % (Auto) 9.3 Eos % (Auto) 0.4 Baso % (Auto) 0.2 Neut # (Auto) 14.1 H Lymph # (Auto) 2.8 Stanley # (Auto) 1.8 H Eos # (Auto) 0.1 Baso # (Auto) 0.0 Total Counted Immature Gran % 1.7 Nucleated RBC % 0.5 Immature Gran # 0.32 Segmented Neutrophils Band Neutrophils Lymphocytes Nucleated RBCs Nucleated RBCs # 0.10 Platelet Estimate Immature Plt Fraction 0.0 Anisocytosis Ovalocytes INR 1.1 PT Patient/Control Mix 12.0 Sodium 131 L Potassium 3.1 L Chloride 92 L Carbon Dioxide 33 H Anion Gap 9.1 BUN 20 H Creatinine 0.60 GFR Calculation 84 BUN/Creatinine Ratio 33.00 H Glucose 137 H Hemoglobin A1c Calculated Osmolality 266.7 L Calcium 8.7 Magnesium 2.0 Total Bilirubin 0.50 AST 34 ALT 126 H Alkaline Phosphatase 65 Troponin I 0.515 H Total Protein 6.4 Albumin 3.7 Globulin 2.7 Albumin/Globulin Ratio 1.3 Urine Color Urine Appearance Urine pH Ur Specific [place] Urine Protein Urine Glucose (UA) Urine Ketones Urine Blood Urine Nitrate Urine Bilirubin Urine Urobilinogen Urine Leukocytes Urine RBC Urine WBC Urine Mucus Ur Culture Indicated? Theophylline Blood Type Antibody Screen Crossmatch Blood Bank Comment 11/27/16 11/28/16 11/28/16 19:20 01:20 01:20 WBC 19.0 H RBC 3.32 L Hgb 7.1 L Hct 24.4 L MCV 73.5 L MCH 21 L MCHC 29.1 L RDW 15.7 Plt Count 430 H MPV 10.7 Neut % (Auto) 92.8 H Lymph % (Auto) 3.1 L Stanley % (Auto) 1.5 L Eos % (Auto) 0.1 Baso % (Auto) 0.2 Neut # (Auto) 17.6 H Lymph # (Auto) 0.6 L Stanley # (Auto) 0.3 Eos # (Auto) 0.0 Baso # (Auto) 0.0 Total Counted 100 Immature Gran % 2.3 Nucleated RBC % 0.5 Immature Gran # 0.44 Segmented Neutrophils 97 H Band Neutrophils 1 Lymphocytes 2 L Nucleated RBCs 1 Nucleated RBCs # 0.09 Platelet Estimate Normal Immature Plt Fraction 0.0 Anisocytosis 1+ Ovalocytes Few INR PT Patient/Control Mix Sodium 134 L Potassium 3.8 Chloride 91 L Carbon Dioxide 36 H Anion Gap 10.8 BUN 16 Creatinine 0.60 GFR Calculation 84 BUN/Creatinine Ratio 26.00 H Glucose 170 H Hemoglobin A1c Calculated Osmolality 272.2 L Calcium 8.9 Magnesium 2.2 Total Bilirubin 0.60 AST 45 H ALT 144 H Alkaline Phosphatase 75 Troponin I Total Protein 6.8 Albumin 3.9 Globulin 2.9 Albumin/Globulin Ratio 1.3 Urine Color Urine Appearance Urine pH Ur Specific [place] Urine Protein Urine Glucose (UA) Urine Ketones Urine Blood Urine Nitrate Urine Bilirubin Urine Urobilinogen Urine Leukocytes Urine RBC Urine WBC Urine Mucus Ur Culture Indicated? Theophylline Blood Type A POSITIVE Antibody Screen Negative Crossmatch Blood Bank Comment 11/28/16 11/28/16 11/28/16 01:20 01:20 09:10 WBC RBC Hgb Hct MCV MCH MCHC RDW Plt Count MPV Neut % (Auto) Lymph % (Auto) Stanley % (Auto) Eos % (Auto) Baso % (Auto) Neut # (Auto) Lymph # (Auto) Stanley # (Auto) Eos # (Auto) Baso # (Auto) Total Counted Immature Gran % Nucleated RBC % Immature Gran # Segmented Neutrophils Band Neutrophils Lymphocytes Nucleated RBCs Nucleated RBCs # Platelet Estimate Immature Plt Fraction Anisocytosis Ovalocytes INR PT Patient/Control Mix Sodium Potassium Chloride Carbon Dioxide Anion Gap BUN Creatinine GFR Calculation BUN/Creatinine Ratio Glucose Hemoglobin A1c 6.5 H Calculated Osmolality Calcium Magnesium Total Bilirubin AST ALT Alkaline Phosphatase Troponin I 0.422 H Total Protein Albumin Globulin Albumin/Globulin Ratio Urine Color Colorless Urine Appearance Clear Urine pH 7.0 Ur Specific [place] 1.004 Urine Protein Negative Urine Glucose (UA) Negative Urine Ketones Negative Urine Blood Moderate Urine Nitrate Negative Urine Bilirubin Negative Urine Urobilinogen < 2.0 H Urine Leukocytes Trace Urine RBC 20 Urine WBC 1 Urine Mucus Occasional Ur Culture Indicated? Not indicated Theophylline Blood Type Antibody Screen Crossmatch Blood Bank Comment 11/28/16 11/28/16 11/28/16 09:35 09:35 Unknown WBC RBC Hgb Hct MCV MCH MCHC RDW Plt Count MPV Neut % (Auto) Lymph % (Auto) Stanley % (Auto) Eos % (Auto) Baso % (Auto) Neut # (Auto) Lymph # (Auto) Stanley # (Auto) Eos # (Auto) Baso # (Auto) Total Counted Immature Gran % Nucleated RBC % Immature Gran # Segmented Neutrophils Band Neutrophils Lymphocytes Nucleated RBCs Nucleated RBCs # Platelet Estimate Immature Plt Fraction Anisocytosis Ovalocytes INR PT Patient/Control Mix Sodium Potassium Chloride Carbon Dioxide Anion Gap BUN Creatinine GFR Calculation BUN/Creatinine Ratio Glucose Hemoglobin A1c Calculated Osmolality Calcium Magnesium Total Bilirubin AST ALT Alkaline Phosphatase Troponin I 0.308 H D Total Protein Albumin Globulin Albumin/Globulin Ratio Urine Color Urine Appearance Urine pH Ur Specific [place] Urine Protein Urine Glucose (UA) Urine Ketones Urine Blood Urine Nitrate Urine Bilirubin Urine Urobilinogen Urine Leukocytes Urine RBC Urine WBC Urine Mucus Ur Culture Indicated? Theophylline 9.1 L Blood Type A POSITIVE Antibody Screen Cancelled Crossmatch See Detail Blood Bank Comment Cancelled - Diagnostic Findings Procedure: Abdominal x-ray: report reviewed by me, Chest x-ray: report reviewed by me - EKG EKG results: interpreted by me, sinus rhythm Quality Measures - VTE Contraindication to Pharmacological VTE Prophylaxis: Active Bleeding - Stroke Symptom Onset Unknown: No I, Joaquin Diaz MD, personally performed the services described in this documentation, ascribed by Gabriela Preciado NP in my presence, and it is both accurate and complete 555 .
[2016-11-28] MEDS: ONDANSETRON 4 MG/2 ML VIAL IV PRN (19:15)
[2016-11-28 19:59] LABS: Hematocrit 28.8 VOL% (35.7-47.0); Hemoglobin 8.8 GM/DL (12.0-16.0)
[2016-11-28] MEDS: SODIUM CHLORIDE 0.9% 1,000 ML IV SCH (20:26)
[2016-11-28] MEDS: POTASSIUM CHLORIDE 10 MEQ TABLET PO SCH (22:03)
[2016-11-28] MEDS: rOPINIRole 0.25 MG TABLET PO SCH (22:12)
[2016-11-29] MEDS: ALBUTEROL/IPRATROPIUM 3 ML NEB RESP TX SCH ×7 (00:02→23:46)
[2016-11-29 01:14] LABS: Hematocrit 27.8 VOL% (35.7-47.0); Hemoglobin 8.4 GM/DL (12.0-16.0)
[2016-11-29] MEDS: SODIUM CHLORIDE 0.9% 1,000 ML IV SCH ×4 (02:42→14:23)
[2016-11-29 08:07] LABS: Hematocrit 28.6 VOL% (35.7-47.0); Hemoglobin 8.4 GM/DL (12.0-16.0)
[2016-11-29 08:41] LABS: Albumin 3.3 G/DL (3.4-5.0); Bilirubin,Total 0.6 MG/DL (0.2-1.0); Calcium 9.3 MG/DL (8.5-10.1); Potassium 3.9 MMOL/L (3.5-5.1); Total Protein 6.1 G/DL (6.4-8.3)
[2016-11-29] MEDS: FUROSEMIDE 40 MG/4 ML VIAL IV SCH (09:13)
[2016-11-29] MEDS: DILTIAZEM CD 180 MG CAPSULE PO SCH ×2 (09:14→17:31)
[2016-11-29] MEDS: THEOPHYLLINE ER (24 HR) 400 MG TABLET PO SCH ×2 (09:15→17:31)
[2016-11-29] MEDS: lamoTRIgine 25 MG TABLET PO SCH ×2 (09:15→20:19)
[2016-11-29] MEDS: hydroCHLOROthiazide 25 MG TABLET PO SCH (09:15)
[2016-11-29] MEDS: PANTOPRAZOLE 40 MG TABLET PO SCH ×2 (09:15→17:32)
[2016-11-29] MEDS: predniSONE 10 MG TABLET PO SCH ×2 (09:15→17:32)
--- NOTE | 2016-11-29 12:03 | History and Physical Update ---
History and Physical Update - History and Physical H&P was reviewed, the patient examined and there: are no changes in the patients condition since last H&P was completed. - Physical Exam Mental Status: alert and oriented Heart: regular rate and rhythm Lung: clear to auscultation Abdomen: within normal limits Vitals: within normal limits
[2016-11-29] MEDS ORDERED: PROPOFOL 200 MG/20 ML VIAL IV ONE (12:04)
--- NOTE | 2016-11-29 12:16 | Operative Note ---
Date of procedure: 11/29/16 Pre-op diagnosis: GI bleed with melena Procedure: Procedure: Esophagogastroduodenoscopy Brief clinical abstract: Patient is a 76-year-old female on Eliquis admitted with recent increased weakness and with melena and hemoglobin of 6. She has required transfusion. Patient had colonoscopy within the past year at [place] [facility] by Dr. Rouse. Indication for procedure: GI bleed with melena Endoscopic findings:[After informed consent was obtained, the patient was placed in the left lateral decubitus position. The gastroscope was inserted in the upper esophagus under direct vision with no resistance encountered. Esophageal mucosa appeared normal with squamocolumnar junction sharply demarcated above a small hiatal hernia. The endoscope was advanced in the stomach which was carefully examined including retroflexed view of the cardia and fundus with no abnormality seen. The pyloric channel, duodenal bulb, second and third portion of the duodenum appeared normal. The endoscope was removed and patient appeared to tolerate the procedure well. Impression: Small hiatal hernia-otherwise normal EGD with no bleeding source identified Recommendations: Small bowel capsule endoscopy given fairly recent colonoscopy exam. Anesthesia: GETA (tiva) Surgeon / Physician: Magen Traylor Estimated blood loss: none Specimens: none sent Condition: stable Disposition: post procedure unit Results - Labs CBC & BMP: 11/29/16 07:52 11/29/16 07:52 Discharge Plan - Discharge Medications No Action lamoTRIgine [Lamotrigine Tab] 25 mg PO BID Theophylline ER Tab (24 Hr) 400 mg PO QAM predniSONE TAB [PredniSONE] 10 mg PO QDX21D dilTIAZem HCl [Diltiazem ER (24 hr)] 360 mg PO QAM Tramadol HCl [Tramadol Tab] 50 mg PO TID PRN PRN Reason: Pain Pantoprazole Tab [Protonix Tab] 40 mg PO QAM Linaclotide [Linzess] 290 mcg PO QAM Ipratropium/Albuterol Inhaler [Combivent Respimat Inhaler] 2 puff PO QID PRN PRN Reason: COPD Furosemide Tab [Lasix Tab] 10 mg PO QAM Albuterol Sulfate [Ventolin HFA] 1 puff PO Q4H PRN PRN Reason: COPD Aspirin EC Tab 81 mg PO QAM hydroCHLOROthiazide [Hydrochlorothiazide] 25 mg PO QAM Dexlansoprazole [Dexilant] 60 mg PO QAM Apixaban [Eliquis] 5 mg PO BID #60 tablet rOPINIRole [Requip] 0.25 mg PO BEDTIME #30 tablet Potassium Chloride 10 meq PO BEDTIME - Follow Up or Referral - Forms/Instructions
--- NOTE | 2016-11-29 12:37 | Anesthesia Post-Op ---
Anesthesia Post OP - Post Ansesthetic Evaluation Patient seen in post op: Yes Resp: within normal limits CV: within normal limits Mental: within normal limits Temp: within normal limits Eihc-[id number]-[id number]: within normal limits Nausea and Vomiting: within normal limits Pain: within normal limits
--- NOTE | 2016-11-29 13:41 | Physician Query Form ---
CLICK EDIT DOCUMENT TO SELECT QUERY ANSWER --> OK --> SIGN Denise Melchor RN Clinical Electrical Systems Design Engineer W) [phone] (f) [phone] [email or web address] PROVIDERS: Make your selection(s) from the choices in EACH section by typing an "x" and enter comments in the comment section. Please use your independent medical judgment in providing your response. This request does not imply that any particular answer is desired or expected. CLINICAL INDICATORS: (Providers should not edit this section) Based on documentation of "Acute COPD" "COPD Exacerbation" "Chronic home O2 dependent" "Home O2@2L/NC" "Exertional dyspnea" "Asthma" Treated with Oxygen , IV Solu Medrol, and Duo Nebs. If possible, please further clarify the type and acuity of respiratory diagnosis : ACUITY: ( ) Acute ( ) Chronic ( X) Acute on Chronic TYPE: (X ) Respiratory failure with hypoxia ( ) Respiratory failure with hypercapnia ( ) Respiratory Arrest ( ) Postprocedural/postoperative respiratory failure ( ) ARDS (Adult/Acute Respiratory Distress Syndrome) ( ) Other, please specify: ( ) Clinically unable to determine Recognized criteria for respiratory failure PH <7.35 or >7.45 PO2 <60 PCO2 >50 RR >24 O2 Sat <90% on RA or <95% on O2 Use of accessory muscles Unable to speak in full sentences Intubation is not required COMMENTS: PLEASE ALSO DOCUMENT RESPONSE IN PROGRESS NOTES AND/OR DISCHARGE SUMMARY Use of terms such as suspected, likely, or probable (associated with a specific diagnosis that is being evaluated, monitored, or treated as if it exists) are acceptable and can be restated in the discharge summary if not ruled out. MTDD
--- NOTE | 2016-11-29 14:22 | EKG Report ---
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
[2016-11-29 14:38] LABS: Hematocrit 31.3 VOL% (35.7-47.0); Hemoglobin 9.1 GM/DL (12.0-16.0)
--- NOTE | 2016-11-29 14:48 | Hospitalist Progress Note ---
Assessment and Plan (1) Anemia Status: Acute Assessment and plan: The patient's symptoms have improved after transfusion. Dr. Traylor recommends capsule endoscopy. No further bleeding has been apparent during hospital stay. Current Visit: Yes (2) Atrial fib/flutter, transient Status: Acute Current Visit: Yes (3) Generalized weakness Status: Acute Current Visit: Yes (4) Chronic anticoagulation Status: Chronic Current Visit: Yes Hospitalist: Subjective Interval history: The patient had EGD without identifying source of GI bleeding today. Dr. Traylor recommends capsule endoscopy. The patient is working with the medical case manager to arrange transfer to geriatric psychiatry unit at the time of discharge. Exam - Constitutional Vitals: Period Temp Pulse Resp BP Sys/Wahl Pulse Ox Last 24 Hr 97.1 F-99.1 F 20-111 16-20 97-146/40-074 88-99 General appearance: mild distress - Respiratory Respiratory exam: Present: clear to auscultation bilaterally - Cardiovascular Cardiovascular exam: Present: regular rate and rhythm - GI/Abdominal GI/Abdominal exam: Present: normal bowel sounds Results - Labs CBC & BMP: 11/29/16 14:30 11/29/16 07:52 Lab Results: I have reviewed the past 24 hour labs Quality Measures - VTE Contraindication to Pharmacological VTE Prophylaxis: Active Bleeding - Stroke Symptom Onset Unknown: No
--- NOTE | 2016-11-29 15:20 | Cardiology Progress Note ---
Ozzy Mckeon Lesley, NP, am scribing for, and in the presence of, Raysa Paiz NP 15:17. Assessment and Plan - Time spent with patient Time spent with patient: Greater than 30 minutes (Record review, assessment, documentation) (1) Chronic anticoagulation Status: Chronic Assessment and plan: SEE PLAN LISTED BELOW Current Visit: Yes (2) Elevated troponin Status: Acute Assessment and plan: SEE PLAN LISTED BELOW Current Visit: Yes (3) History of atrial fibrillation Status: Chronic Assessment and plan: SEE PLAN LISTED BELOW Current Visit: No (4) Anemia Status: Acute Assessment and plan: SEE PLAN LISTED BELOW Current Visit: Yes Cardiology - PN: Subj Interval history: Raysa Mckeon NP, saw patient while in the presence of DANYEL Read. I examined the patient, reviewed patient's case with Ozzy as she acted as a scribe. 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 Stanford is a 76 year old female, who presented to [facility] ER from her PCPs clinic after abnormal labs. She reported black tarry stools for the last 2 months with worsening dyspnea on exertion. She denies chest pain. She has a history of COPD and is on home oxygen. She reports she was recently treated for COPD exacerbation with an antibiotic and steroids. She was taking Eliquis for a history of paroxysmal atrial fibrillation, and had no history of GI bleeds. Cardiac history is significant for hypertension, oxygen dependent COPD, paroxysmal atrial fibrillation with RVR, advanced age, sedentary lifestyle. The patient is known to Dr. Delatorre and was last seen at [facility] clinic 06/2016. Most recent echocardiogram done 02/2016 revealed moderate concentric left ventricular hypertrophy with diastolic dysfunction, LVEF estimated at greater than 55%, right atrium mildly enlarged, mildly thickened mitral valve with mild mitral regurgitation, trace aortic valve regurgitation, moderate tricuspid valve regurgitation, PAP 32.7. The patient was seen sitting on side of the bed today, she reports feeling much better. She denies chest pain, but reports increased dyspnea with exertion over the last 1-2 months. She admits black tarry stools for 2 months. The patient is on oxygen at home for her COPD. She no longer smokes, and states she quit sometime ago. The patient has been on Eliquis for some time due to paroxysmal atrial fibrillation. She was admitted with a hemoglobin of 6.8, hematocrit 23. INR was 1.1, sodium 131, potassium 3.1, creatinine 0.6, glucose 137, magnesium 2.0, troponin I 0.515. This was the peak troponin, and it has been trending downward. After 2 units of packed red cells, her hemoglobin and hematocrit have increased to 7/24. Vital signs have remained stable, EKG shows sinus rhythm with PVCs. Abdominal x-ray shows fecal impaction, possible hepatomegaly. Chest x-ray shows mild cardiomegaly and venous congestion, chronic lung changes. The patient complains of bilateral lower extremity edema that has worsened over the last 2-3 weeks. 11/29/18: Patient did well overnight. The patient denies chest pain. Vital signs stable. Patient had EGD today, small hiatal hernia noted, no bleeding source identified. Small bowel capsule endoscopy recommended. Labs reviewed, abnormals include glucose at 120, ALT 132. H&H 8 and 28, stable. air sampling and monitoring reveals a flutter/fib? Rate controlled in the 90s. We will continue to follow. IMPRESSION/PLAN: 1. ELEVATED TROPONIN - likely due to demand ischemia from anemia. Trending downward and no anginal symptoms. We will add nitrates. Avoiding LOKI inhibitor (allergy). Favor using calcium channel faraz for rate control rather than beta-blockade. Avoiding aspirin due to recent anemia and GI bleed. Avoiding statins due to recently elevated LFTs. 2. CHRONIC ANTICOAGULATION - holding Eliquis and aspirin, likely no longer be a candidate for anticoagulation. 3. HISTORY OF ATRIAL FIBRILLATION WITH RVR - continue diltiazem, continues to have paroxysms of atrial fibrillation. Seems to be rate controlled 4. ANEMIA - H&H 9 and 29 post transfusion, black tarry stools 2 months. GI is consulted to follow. Exam (Progress Note) - Constitutional Vitals: Period Temp Pulse Resp BP Sys/Wahl Pulse Ox Last 24 Hr 97.1 F-99.1 F 20-111 16-20 97-146/40-074 87-99 Exam: General: [Appears well with no apparent distress.] [Pleasant and cooperative. ] [Appears comfortable.] HEENT: [PERRL, normocephalic, atraumatic]. [Mucous membranes moist.] [No jaundice noted.] [Conjunctiva moist and clear, sclerae anicteric.] Neck: [No JVD/HJR, no thyromegaly or lymphadenopathy noted.] [ No carotid bruit appreciated.] Cardiac: [Irregularly irregular rhythm, controlled rate.] [No murmur rub or gallop.] [] Lungs: [Course bilaterally to auscultation without accessory muscle use to assist the respiratory pattern. Using oxygen intermittently. . Abdomen: Soft, bowel sounds normoactive. Nontender and nondistended. No abdominal bruit or thrill noted. No masses noted. Musculoskeletal: No fluid collection. Full range of motion is noted. Extremities: No clubbing, cyanosis noted. No edema noted. Upper extremity pulses 2+. Lower extremity pulses 2+. Capillary refill less than 3 seconds. Skin: No unusual lesions or rashes. No skin breakdown appreciated. Neuro: Awake, alert and oriented 3. Moves all extremities well without hemiparesis or paralysis. No essential tremor is appreciated. Result/EKG - Labs CBC & BMP: 11/29/16 14:30 11/29/16 07:52 Lab Results: I have reviewed the past 24 hour labs Labs: Laboratory Results - last 24 hr 11/28/16 11/29/16 11/29/16 19:34 00:33 07:52 Hgb 8.8 L 8.4 L 8.4 L Hct 28.8 L 27.8 L 28.6 L Sodium Potassium Chloride Carbon Dioxide Anion Gap BUN Creatinine GFR Calculation BUN/Creatinine Ratio Glucose Calculated Osmolality Calcium Total Bilirubin AST ALT Alkaline Phosphatase Total Protein Albumin Globulin Albumin/Globulin Ratio 11/29/16 07:52 Hgb Hct Sodium 136 Potassium 3.9 Chloride 94 L Carbon Dioxide 35 H Anion Gap 10.9 BUN 26 H Creatinine 0.60 GFR Calculation 84 BUN/Creatinine Ratio 43.00 H Glucose 120 H Calculated Osmolality 277.0 Calcium 9.3 Total Bilirubin 0.60 AST 35 ALT 132 H Alkaline Phosphatase 66 Total Protein 6.1 L Albumin 3.3 L Globulin 2.8 Albumin/Globulin Ratio 1.1 - EKG EKG results: interpreted by me EKG shows: atrial fibrillation (Atrial flutter ) Quality Measures - VTE Contraindication to Pharmacological VTE Prophylaxis: Active Bleeding - Stroke Symptom Onset Unknown: No Chencho Mckeon Bonnie E, NP, personally performed the services described in this documentation, ascribed by Gabriela Preciado NP in my presence, and it is both accurate and complete .
[2016-11-29] MEDS: ISOSORBIDE MONONITRATE 30 MG TABLET PO SCH (17:32)
--- NOTE | 2016-11-29 17:43 | ECHO Report ---
Nerissa Stanford Exam Date: 11/29/2016 08:20 Referring Physician: Technologist: Radha Evans Age: 76 Ht (in): 63 Wt (lb): 140 Gender: F Exam Location: [facility] Echo Indications: chronic anti coag, elevated troponin, Hx. A fib, anemia BP: 127 / 62 HR: 117 Rhythm: tachycardia Technical Quality: IMPRESSIONS 3+ left atrial enlargement Borderline LV systolic function with ejection fraction estimated 50% without segmental wall motion normality Aortic sclerosis without stenosis 2-3+ mitral regurgitation 1-2+ tricuspid regurgitation with RVSP 56 mmHg plus RAP suggesting at least moderate pulmonary hypertension MEASUREMENTS (Male / Female) Normal Values 2D ECHO LV Diastolic Diameter PLAX 5.0 cm 4.2 - 5.9 / 3.9 - 5.3 cm LV Systolic Diameter PLAX 2.7 cm LV Fractional Shortening PLAX 45.8 % IVS Diastolic Thickness 1.0 cm 0.6 - 1.0 / 0.6 - 0.9 cm LVPW Diastolic Thickness 1.1 cm 0.6 - 1.0 / 0.6 - 0.9 cm RV Internal Dim ED PLAX 2.9 cm Aortic Root Diameter 2.6 cm LA Systolic Diameter LX 5.3 cm 3.0 - 4.0 / 2.7 - 3.8 cm DOPPLER TR Peak Velocity 374.0 cm/s TR Peak Gradient 56.0 mmHg FINDINGS Left Ventricle Normal left ventricular cavity size. Mild concentric left ventricular hypertrophy with diastolic dysfunction. Left ventricular ejection fraction is estimated at 50-% Right Ventricle Normal right ventricular size. Right Atrium The right atrium is mildly enlarged. Left Atrium Moderately increased left atrial size. Mitral Valve Mildly thickened mitral valve with mild - moderate mitral regurgitation. Aortic Valve Mild aortic valve sclerosis without stenosis or regurgitation. Tricuspid Valve Morphologically normal tricuspid valve. Trace to mild tricuspid valve regurgitation. Tricuspid regurgitation velocities suggest a PAP of 56.0 mmHg + RAp. Pulmonic Valve Pulmonic valve not well visualized. Pericardium No pericardial effusion. Aorta Normal size aortic root and proximal ascending aorta. Joaquin Diaz (Electronically Signed) Final Date: 29 November 2016 17:42
[2016-11-29] MEDS ORDERED: MAGNESIUM CITRATE 300 ML BOTTLE PO ONE (18:00)
[2016-11-29] MEDS: AZITHROMYCIN 250 MG PO SCH ×2 (19:17→19:18)
[2016-11-29] MEDS: POTASSIUM CHLORIDE 10 MEQ TABLET PO SCH (20:19)
[2016-11-29] MEDS: rOPINIRole 0.25 MG TABLET PO SCH (20:19)
[2016-11-29] MEDS: ONDANSETRON 4 MG/2 ML VIAL IV PRN (23:41)
[2016-11-30] MEDS: SODIUM CHLORIDE 0.9% 1,000 ML IV SCH ×3 (02:51→17:02)
[2016-11-30] MEDS: ALBUTEROL/IPRATROPIUM 3 ML NEB RESP TX SCH ×6 (04:33→23:49)
[2016-11-30] MEDS: FUROSEMIDE 40 MG/4 ML VIAL IV SCH (09:41)
[2016-11-30] MEDS: ISOSORBIDE MONONITRATE 30 MG TABLET PO SCH ×2 (11:53→16:59)
[2016-11-30] MEDS: lamoTRIgine 25 MG TABLET PO SCH ×2 (11:53→22:30)
[2016-11-30] MEDS: hydroCHLOROthiazide 25 MG TABLET PO SCH ×2 (11:53→16:59)
[2016-11-30] MEDS: predniSONE 10 MG TABLET PO SCH ×2 (11:53→16:59)
[2016-11-30] MEDS: DILTIAZEM CD 180 MG CAPSULE PO SCH ×2 (11:53→16:58)
[2016-11-30] MEDS: PANTOPRAZOLE 40 MG TABLET PO SCH ×2 (11:54→16:58)
[2016-11-30] MEDS: THEOPHYLLINE ER (24 HR) 400 MG TABLET PO SCH ×2 (11:54→16:58)
--- NOTE | 2016-11-30 14:35 | Fluoroscopy Report ---
Small bowel series Indication: Gastrointestinal hemorrhage, anemia Findings: The bowel caliber is normal. No mucosal irregularities are seen. There is no mass effect or filling defects identified. Contrast passes normally into the colon. Impression: No evidence of abnormality demonstrated. PROCEDURE INTERPRETED AT [facility] DEPARTMENT OF RADIOLOGY Final Report Signed by: Dr. Ryan Harvey
--- NOTE | 2016-11-30 14:36 | Hospitalist Progress Note ---
Assessment and Plan (1) Anemia Status: Acute Assessment and plan: The patient's symptoms have improved after transfusion. No further bleeding has been apparent during hospital stay. Current Visit: Yes (2) Atrial fib/flutter, transient Status: Acute Current Visit: Yes (3) Generalized weakness Status: Acute Current Visit: Yes (4) Chronic anticoagulation Status: Chronic Current Visit: Yes Hospitalist: Subjective Interval history: Ms. Stanford has no stigmata of bleeding. She is having upper GI series this morning. I inspected the films available on the monitor. There is no evidence of obstruction at this time and contrast is in bowel transit. Exam - Constitutional Vitals: Period Temp Pulse Resp BP Sys/Wahl Pulse Ox Last 24 Hr 98.6 F-99.9 F 67-113 18-20 101-134/49-72 91-98 General appearance: mild distress - Respiratory Respiratory exam: Present: clear to auscultation bilaterally - Cardiovascular Cardiovascular exam: Present: regular rate and rhythm - GI/Abdominal GI/Abdominal exam: Present: hypoactive bowel sounds Results - Labs CBC & BMP: 11/29/16 14:30 11/29/16 07:52 Lab Results: I have reviewed the past 24 hour labs Quality Measures - VTE Contraindication to Pharmacological VTE Prophylaxis: Active Bleeding - Stroke Symptom Onset Unknown: No
--- NOTE | 2016-11-30 15:03 | Gastrointestinal Progress Note ---
Assessment and Plan (1) Anemia Status: Acute Assessment and plan: 11/30-small bowel follow-through results noted as below. No reports of overt bleeding. Unable to do small bowel endoscopy today. Plan an addendum to followed by Dr. Traylor. 11/28-admitted with low H&H from PCP office with reports of increased fatigue and weakness with shortness of breath over the last several weeks. no prior history of GI bleeding in the past. On Eliquis therapy for atrial fibrillation with last dose on Sunday. H&H 09/01 on admission, now 10/02 post transfusion. Heme positive stools. Obtain endoscopy records from [place]. Plan an addendum to followed by Dr. Traylor. Current Visit: Yes Gastroenterology - PN: Subj Interval history: Cc: GI bleed Patient is seen, just now returning from her small bowel follow-through today. She was noted to be an x-ray for an extended period of time however results noted showed no evidence of abnormality. She denies any abdominal pain, nausea vomiting. She denies any overt bleeding at this time. EGD on yesterday just showed small hiatal hernia. She was unable to swallow the small bowel capsule this morning for endoscopy therefore plans were changed for the small bowel follow-through. H&H was not repeated this morning however was stable on yesterday. Noted that upon discharge she may possibly go for [facility] inpatient care. Abdomen is soft, nontender. ROS: Denies shortness of breath or chest pain Exam (Progress Note) - Constitutional Vitals: Period Temp Pulse Resp BP Sys/Wahl Pulse Ox Last 24 Hr 98.6 F-99.9 F 67-113 18-20 101-134/49-72 91-98 - Other Additional findings: General appearance: normal weight, no acute distress - Head Head exam: Present: normal inspection, normocephalic - Eye Eye exam: Present: other (Lids and conjunctivae are unremarkable). Absent: scleral icterus - ENT ENT exam: Present: normal exam, normal oropharynx - Neck Neck exam: Present: normal inspection - Respiratory Respiratory exam: Present: clear to auscultation bilaterally. Absent: rales, rhonchi, wheezes - Cardiovascular Cardiovascular exam: Present: regular rate and rhythm. Absent: diastolic murmur , JVD, systolic murmur - GI/Abdominal GI/Abdominal exam: Present: normal bowel sounds, soft. Absent: ascites, distended, mass, organomegaly, tenderness - Extremities Exam Extremities exam: Present: normal inspection, full ROM - Back Exam Back exam: Present: normal inspection - Neurological Exam Neurological exam: Present: alert, oriented X3 - Psychiatric Psychiatric exam: Present: normal affect, normal mood - Skin Skin exam: Present: normal color, warm, dry Results - Labs CBC & BMP: 11/29/16 14:30 11/29/16 07:52 Lab Results: I have reviewed the past 24 hour labs
--- NOTE | 2016-11-30 17:26 | Cardiology Progress Note ---
I, Gabriela Preciado NP, am scribing for, and in the presence of, Joaquin Diaz MD 17:23. Assessment and Plan - Time spent with patient Time spent with patient: Greater than 30 minutes (Record review, assessment, and documentation) (1) Chronic anticoagulation Status: Chronic Assessment and plan: Initial impression and recommendations: 1. 76-year-old previous smoker (quit less than 2 years ago) with COPD oxygen dependent, admitted February 2016 with atrial fibrillation with RVR which reverted to normal sinus rhythm, now admits with a couple months of intermittent melena, and a number of days of increasing dyspnea on exertion and fatigue with significant anemia with hemoglobin in the 7 range now status post transfusion clinically modestly better. 2. New ST-T change, and mild troponin elevation suggests likely underlying CAD , but would treat medically given her very recent melena 3. She reports she was taking Eliquis and aspirin, obviously both need to be held for now. There is no known history of coronary artery disease or stroke by history. 4. Chads 2 vascular score of 4 5. Leukocytosis with left shift, possibly related to steroid use 6. Patient previously seen by Dr. Robledo 7. We will continue diltiazem, treated with high intensity statin therapy 8. We will follow with you 9. Would benefit from GI evaluation November 30, 2016: 1. Ms. Stanford is predominantly in normal sinus rhythm now but has paroxysmal atrial fibrillation 2. GI workup in progress 3. She should be off anticoagulation for some time; depending on her workup at a later date low-dose Eliquis could be considered. I would not restart aspirin given she has no known history of CAD. 4. Currently off of statin therapy due to LFT elevation; consider restarting at a later time depending on her workup. Current Visit: Yes (2) Elevated troponin Status: Resolved Assessment and plan: SEE PLAN LISTED BELOW Current Visit: Yes (3) History of atrial fibrillation Status: Chronic Assessment and plan: SEE PLAN LISTED BELOW Current Visit: No (4) Anemia Status: Acute Assessment and plan: SEE PLAN LISTED BELOW Current Visit: Yes Cardiology - PN: Subj Interval history: CLAMMER: Dr. Delatorre SUMMARY: Ms. Stanford is a 76 year old female, who presented to [facility] ER from her PCPs clinic after abnormal hemoglobin. She reported black tarry stools for the last 2 months with worsening dyspnea on exertion. She denies chest pain. She has a history of oxygen dependent COPD, and states she quit smoking 2 years ago. She reports she was recently treated for COPD exacerbation with an antibiotic and steroids. She was taking Eliquis for a history of paroxysmal atrial fibrillation, and had no history of GI bleeds. She was admitted for anemia. Cardiac history is significant for hypertension, oxygen dependent COPD, paroxysmal atrial fibrillation with RVR, advanced age, sedentary lifestyle. The patient is known to Dr. Delatorre and was last seen at [facility] 06/2016. Most recent echocardiogram done 02/2016 revealed moderate concentric left ventricular hypertrophy with diastolic dysfunction, LVEF estimated at greater than 55%, right atrium mildly enlarged, mildly thickened mitral valve with mild mitral regurgitation, trace aortic valve regurgitation, moderate tricuspid valve regurgitation, PAP 32.7. 11/29/2018: Patient did well overnight. The patient denies chest pain. Vital signs stable. Patient had EGD today, small hiatal hernia noted, no bleeding source identified. Small bowel capsule endoscopy recommended. Labs reviewed, abnormals include glucose at 120, ALT 132. H&H 8 and 28, stable. head control clerk reveals a flutter/fib? Rate controlled in the 90s. 11/30/2016: Patient had small bowel series today, results pending. H/H stable at . Denies complaints of chest pain. Patient converted to SR this morning from Aflutter. Strip noted during the night Aflutter, rate in the 150's nonsustained. IMPRESSION/PLAN: 1. ELEVATED TROPONIN - likely due to demand ischemia from anemia. Trending downward and no anginal symptoms. Nitrates added. Avoiding LOKI inhibitor (allergy). Avoiding aspirin due to recent anemia and GI bleed. Avoiding statins due to recently elevated LFTs. 2. CHRONIC ANTICOAGULATION - holding Eliquis and aspirin, likely no longer be a candidate for anticoagulation. 3. ATRIAL FIBRILLATION/FLUTTER - continue diltiazem, continues to have paroxysms of atrial fibrillation/flutter. Rate controlled with CCB, favor this over beta faraz. 4. ANEMIA - H/H stable, s/p blood transfusion, GI following. Exam (Progress Note) - Constitutional Vitals: Period Temp Pulse Resp BP Sys/Wahl Pulse Ox Last 24 Hr 98.6 F-99.9 F 67-113 18-20 101-134/49-72 91-98 Exam: General: Appears well with no apparent distress. Pleasant and cooperative. Appears comfortable. HEENT: PERRL, normocephalic, atraumatic. Mucous membranes moist. No jaundice noted. Conjunctiva moist and clear, sclerae anicteric. Neck: No JVD/HJR, no thyromegaly or lymphadenopathy noted. No carotid bruit appreciated. Cardiac: Irregular rate and rhythm. No murmur rub or gallop. PMI is nondisplaced. Lungs: Course and diminished bilaterally,without accessory muscle use to assist the respiratory pattern. Oxygen in use via nasal cannula. Abdomen: Soft, bowel sounds normoactive. Nontender and nondistended. No abdominal bruit or thrill noted. No masses noted. Musculoskeletal: No fluid collection. Full range of motion is noted. Extremities: No clubbing, cyanosis noted. No edema noted. Upper extremity pulses 2+. Lower extremity pulses 2+. Capillary refill less than 3 seconds. Skin: Warm and dry. No unusual lesions or rashes. No skin breakdown appreciated. Neuro: Awake, alert and oriented 3. Moves all extremities well without hemiparesis or paralysis. No essential tremor is appreciated. Result/EKG - Labs CBC & BMP: 11/29/16 14:30 11/29/16 07:52 Lab Results: I have reviewed the past 24 hour labs - EKG EKG results: interpreted by me, sinus rhythm Quality Measures - VTE Contraindication to Pharmacological VTE Prophylaxis: Active Bleeding - Stroke Symptom Onset Unknown: No IEmily Randall Scott, MD, personally performed the services described in this documentation, ascribed by Gabriela Preciado NP in my presence, and it is both accurate and complete 726 .
[2016-11-30] MEDS: rOPINIRole 0.25 MG TABLET PO SCH (22:30)
[2016-11-30] MEDS: POTASSIUM CHLORIDE 10 MEQ TABLET PO SCH (22:30)
[2016-12-01] MEDS: ALBUTEROL/IPRATROPIUM 3 ML NEB RESP TX SCH ×6 (02:45→23:48)
[2016-12-01 04:50] LABS: Hematocrit 26.3 VOL% (35.7-47.0)
[2016-12-01 05:19] LABS: Hemoglobin 7.6 GM/DL (12.0-16.0)
[2016-12-01] MEDS: SODIUM CHLORIDE 0.9% 1,000 ML IV SCH ×2 (06:06→22:28)
[2016-12-01] MEDS: THEOPHYLLINE ER (24 HR) 400 MG TABLET PO SCH (09:18)
[2016-12-01] MEDS: DILTIAZEM CD 180 MG CAPSULE PO SCH (09:18)
[2016-12-01] MEDS: PANTOPRAZOLE 40 MG TABLET PO SCH (09:21)
[2016-12-01] MEDS: lamoTRIgine 25 MG TABLET PO SCH ×2 (09:21→20:42)
[2016-12-01] MEDS: hydroCHLOROthiazide 25 MG TABLET PO SCH (09:21)
[2016-12-01] MEDS: predniSONE 10 MG TABLET PO SCH (09:22)
[2016-12-01] MEDS: ISOSORBIDE MONONITRATE 30 MG TABLET PO SCH (09:22)
[2016-12-01] MEDS: FUROSEMIDE 40 MG/4 ML VIAL IV SCH ×2 (09:24→18:50)
--- NOTE | 2016-12-01 10:09 | Gastrointestinal Progress Note ---
Assessment and Plan (1) Anemia Status: Acute Assessment and plan: 12/01-drop in hemoglobin noted. One small report of dark blood with small bowel movement today. No other complaints. We will plan to transfuse 2 units of packed red blood cells today. Plan an addendum to followed by Dr. Traylor. 11/30-small bowel follow-through results noted as below. No reports of overt bleeding. Unable to do small bowel endoscopy today. Plan an addendum to followed by Dr. Traylor. 11/28-admitted with low H&H from PCP office with reports of increased fatigue and weakness with shortness of breath over the last several weeks. no prior history of GI bleeding in the past. On Eliquis therapy for atrial fibrillation with last dose on Sunday. H&H 09/01 on admission, now 10/02 post transfusion. Heme positive stools. Obtain endoscopy records from [place]. Plan an addendum to followed by Dr. Traylor. Current Visit: Yes Gastroenterology - PN: Subj Interval history: CC: Anemia Patient is seen awake alert in the bathroom. States that she is feeling fairly well this morning. She states that she had a very small bowel movement on yesterday with some dark blood noted. She denies any abdominal pain, nausea or vomiting. She is tolerating her diet well this time. H&H is noted to have dropped today with hemoglobin 9.12 days ago and now down to 7.6. Abdomen is soft, nontender. ROS: Denies shortness breath or chest pain Exam (Progress Note) - Constitutional Vitals: Period Temp Pulse Resp BP Sys/Wahl Pulse Ox Last 24 Hr 98.2 F-99.9 F 76-91 18-21 121-156/58-79 91-99 - Other Additional findings: General appearance: normal weight, no acute distress - Head Head exam: Present: normal inspection, normocephalic - Eye Eye exam: Present: other (Lids and conjunctivae are unremarkable). Absent: scleral icterus - ENT ENT exam: Present: normal exam, normal oropharynx - Neck Neck exam: Present: normal inspection - Respiratory Respiratory exam: Present: clear to auscultation bilaterally. Absent: rales, rhonchi, wheezes - Cardiovascular Cardiovascular exam: Present: regular rate and rhythm. Absent: diastolic murmur , JVD, systolic murmur - GI/Abdominal GI/Abdominal exam: Present: normal bowel sounds, soft. Absent: ascites, distended, mass, organomegaly, tenderness - Extremities Exam Extremities exam: Present: normal inspection, full ROM - Back Exam Back exam: Present: normal inspection - Neurological Exam Neurological exam: Present: alert, oriented X3 - Psychiatric Psychiatric exam: Present: normal affect, normal mood - Skin Skin exam: Present: normal color, warm, dry Results - Labs CBC & BMP: 12/01/16 04:24 11/29/16 07:52 Lab Results: I have reviewed the past 24 hour labs
[2016-12-01] MEDS ORDERED: SODIUM CHLORIDE 0.9% 250 ML IV PRN (10:13)
--- NOTE | 2016-12-01 11:34 | Hospitalist Progress Note ---
Assessment and Plan (1) Anemia Status: Acute Assessment and plan: The patient has no visible bleeding but hemoglobin has fallen to 7.6. Transfusion of 2 units of packed red blood cells has been ordered. The patient will be able to transfer to geriatric psychiatry on Sunday. Current Visit: Yes (2) Atrial fib/flutter, transient Status: Acute Current Visit: Yes (3) Generalized weakness Status: Acute Current Visit: Yes (4) Chronic anticoagulation Status: Chronic Current Visit: Yes Hospitalist: Subjective Interval history: Ms. Stanford is feeling well today. Hemoglobin has fallen and transfusion has been ordered. Exam - Constitutional Vitals: Period Temp Pulse Resp BP Sys/Wahl Pulse Ox Last 24 Hr 98.2 F-99.9 F 76-91 18-21 121-156/58-79 89-99 General appearance: no acute distress - Respiratory Respiratory exam: Present: clear to auscultation bilaterally - Cardiovascular Cardiovascular exam: Present: regular rate and rhythm - GI/Abdominal GI/Abdominal exam: Present: normal bowel sounds Results - Labs CBC & BMP: 12/01/16 04:24 11/29/16 07:52 Lab Results: I have reviewed the past 24 hour labs Quality Measures - VTE Contraindication to Pharmacological VTE Prophylaxis: Active Bleeding - Stroke Symptom Onset Unknown: No
[2016-12-01] MEDS ORDERED: POLYETHYLENE GLYCOL POWDER 17 GM PACK PO PRN (13:03)
[2016-12-01] MEDS ORDERED: BISACODYL 10 MG SUPP RECTAL PRN (13:03)
[2016-12-01] MEDS ORDERED: LACTULOSE 20 GM/30 ML UDCUP PO PRN (13:10)
--- NOTE | 2016-12-01 16:25 | Cardiology Progress Note ---
Ozzy Mckeon Lesley, NP, am scribing for, and in the presence of, Joaquin Diaz MD 16:20. Assessment and Plan - Time spent with patient Time spent with patient: Greater than 30 minutes (Record review, assessment, documentation) (1) Chronic anticoagulation Status: Chronic Assessment and plan: December 01, 2016: 1. Slight improvement in dyspnea, still with issues with upper GI bleeding/ anemia. 2. 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 Atrial fib/flutter rate is controlled 4. She is interesting in doing some short walks, so we will consult physical therapy to help her with this. 5. Suspect demand ischemia as the cause of her modest troponin elevation; recommend outpatient stress testing given her risk factors for coronary artery disease per 6. We will sign off, please reconsult if needed prior to discharge. 7. Schedule pharmacologic myocardial scan in 1 month, and subsequent follow-up with Dr. Robledo shortly thereafter. Current Visit: Yes (2) Elevated troponin Status: Resolved Assessment and plan: SEE PLAN LISTED BELOW Current Visit: Yes (3) History of atrial fibrillation Status: Chronic Assessment and plan: SEE PLAN LISTED BELOW Current Visit: No (4) Anemia Status: Acute Assessment and plan: SEE PLAN LISTED BELOW Current Visit: Yes Cardiology - PN: Subj Interval history: SUMMARY: Ms. Stanford is a 76 year old female, who presented to [facility] ER from her PCPs clinic after abnormal hemoglobin. She reported black tarry stools for the last 2 months with worsening dyspnea on exertion. She denies chest pain. She has a history of oxygen dependent COPD, and states she quit smoking 2 years ago. She reports she was recently treated for COPD exacerbation with an antibiotic and steroids. She was taking Eliquis for a history of paroxysmal atrial fibrillation, and had no history of GI bleeds. She was admitted for anemia. Cardiac history is significant for hypertension, oxygen dependent COPD, paroxysmal atrial fibrillation with RVR, advanced age, sedentary lifestyle. The patient is known to Dr. Delatorre and was last seen at [facility] clinic 06/2016. Most recent echocardiogram done 02/2016 revealed moderate concentric left ventricular hypertrophy with diastolic dysfunction, LVEF estimated at greater than 55%, right atrium mildly enlarged, mildly thickened mitral valve with mild mitral regurgitation, trace aortic valve regurgitation, moderate tricuspid valve regurgitation, PAP 32.7. 11/29/2018: Patient did well overnight. The patient denies chest pain. Vital signs stable. Patient had EGD today, small hiatal hernia noted, no bleeding source identified. Small bowel capsule endoscopy recommended. Labs reviewed, abnormals include glucose at 120, ALT 132. H&H 8 and 28, stable. manager monitoring reveals a flutter/fib? Rate controlled in the 90s. 11/30/2016: Patient had small bowel series today, results pending. H/H stable at . Denies complaints of chest pain. Patient converted to SR this morning from Aflutter. Strip noted during the night Aflutter, rate in the 150's nonsustained. 12/01/2016: Patient is seen sitting up on side of bed. She notes one small bowel movement that was dark. Unfortunately her hemoglobin and hematocrit have dropped and she will require more blood transfusion. EKG did reveal new STT change Possible underlying CAD, but recommend medical treatment given recent melena. Chads vasc score of 4. We will continue to follow. IMPRESSION/PLAN: 1. ELEVATED TROPONIN - likely due to demand ischemia from anemia. Trending downward and no anginal symptoms. Nitrates added. Avoiding LOKI inhibitor (allergy). Avoiding aspirin due to recent anemia and GI bleed. Avoiding statins due to recently elevated LFTs. 2. CHRONIC ANTICOAGULATION - holding Eliquis and aspirin, likely no longer be a candidate for anticoagulation. 3. ATRIAL FIBRILLATION/FLUTTER - continue diltiazem, continues to have paroxysms of atrial fibrillation/flutter. Rate controlled with CCB, favor this over beta faraz. 4. ANEMIA - additional blood transfusion ordered, GI following. Exam (Progress Note) - Constitutional Vitals: Period Temp Pulse Resp BP Sys/Wahl Pulse Ox Last 24 Hr 98.2 F-99.9 F 76-91 18-21 121-156/58-79 89-99 Exam: General: Appears well with no apparent distress. Pleasant and cooperative. Appears comfortable. HEENT: PERRL, normocephalic, atraumatic. Mucous membranes moist. No jaundice noted. Conjunctiva moist and clear, sclerae anicteric. Neck: No JVD/HJR, no thyromegaly or lymphadenopathy noted. No carotid bruit appreciated. Cardiac: Irregular rate and rhythm. No murmur rub or gallop. PMI is nondisplaced. Lungs: Course and diminished bilaterally,without accessory muscle use to assist the respiratory pattern. Oxygen in use via nasal cannula. Abdomen: Soft, bowel sounds normoactive. Nontender and nondistended. No abdominal bruit or thrill noted. No masses noted. Musculoskeletal: No fluid collection. Full range of motion is noted. Extremities: No clubbing, cyanosis noted. No edema noted. Upper extremity pulses 2+. Lower extremity pulses 2+. Capillary refill less than 3 seconds. Skin: Warm and dry. No unusual lesions or rashes. No skin breakdown appreciated. Neuro: Awake, alert and oriented 3. Moves all extremities well without hemiparesis or paralysis. No essential tremor is appreciated. Result/EKG - Labs CBC & BMP: 12/01/16 04:24 11/29/16 07:52 Lab Results: I have reviewed the past 24 hour labs Labs: Laboratory Results - last 24 hr 12/01/16 12/01/16 04:21 04:24 Hgb 7.6 L Hct 26.3 L Blood Type A POSITIVE Antibody Screen Negative Crossmatch See Detail - EKG EKG results: interpreted by me EKG shows: atrial fibrillation Quality Measures - VTE Contraindication to Pharmacological VTE Prophylaxis: Active Bleeding - Stroke Symptom Onset Unknown: No Emily Mckeon Randall Scott, MD, personally performed the services described in this documentation, ascribed by Gabriela Preciado NP in my presence, and it is both accurate and complete 625 .
[2016-12-01 20:17] LABS: Hemoglobin 10.2 GM/DL (12.0-16.0)
[2016-12-01] MEDS: POTASSIUM CHLORIDE 10 MEQ TABLET PO SCH (20:42)
[2016-12-01] MEDS: rOPINIRole 0.25 MG TABLET PO SCH (20:43)
[2016-12-02] MEDS: ALBUTEROL/IPRATROPIUM 3 ML NEB RESP TX SCH ×6 (03:20→23:12)
[2016-12-02 04:57] LABS: Basophils % 0.1 % (0.0-0.8); Eosinophils # 0.1 10*3/uL (0.0-0.87); Eosinophils % 0.4 % (0.00-10.9); Hematocrit 33.4 VOL% (35.7-47.0); Hemoglobin 10.1 GM/DL (12.0-16.0); Immature Granulocytes % 1.2 %; Immature Granulocytes Absolute 0.25 #; Lymphocytes # 2.1 10*3/uL (1.4-4.0); Lymphocytes % 9.8 % (21.3-54.2); Mean Corpuscular HGB Conc 30.2 GM/DL (32-36); Mean Corpuscular Hemoglobin 24 PG (27-34); Mean Corpuscular Volume 79.1 FL (87-102); Mean Platelet Volume 10.7 FL (9.6-12.0); Monocytes % 9.5 % (1.7-12.7); NRBC # 0.05 10*3/uL; Neutrophils # 16.5 10*3/uL (1.4-7.4); Platelet Count 358 T/CUMM (130-400); Red Blood Count 4.22 MC/CUMM (3.8-5.5); Red Cell Distribution Width 18.5 % (9.3-17.3); White Blood Count 20.9 T/CUMM (4-12)
[2016-12-02 05:28] LABS: Calcium 9.4 MG/DL (8.5-10.1); Magnesium 2.1 MG/DL (1.8-2.4); Osmolality,Calculated 272.2 MOS/KG (273-304); Potassium 3.9 MMOL/L (3.5-5.1)
[2016-12-02 06:40] LABS: Giant Platelets Few; Hypochromasia 1+; Platelet Estimate Adequate
[2016-12-02] MEDS: DILTIAZEM CD 180 MG CAPSULE PO SCH (08:42)
[2016-12-02] MEDS: lamoTRIgine 25 MG TABLET PO SCH ×2 (08:43→21:24)
[2016-12-02] MEDS: hydroCHLOROthiazide 25 MG TABLET PO SCH (08:43)
[2016-12-02] MEDS: predniSONE 10 MG TABLET PO SCH (08:43)
[2016-12-02] MEDS: PANTOPRAZOLE 40 MG TABLET PO SCH (08:43)
[2016-12-02] MEDS: THEOPHYLLINE ER (24 HR) 400 MG TABLET PO SCH (08:43)
[2016-12-02] MEDS: ISOSORBIDE MONONITRATE 30 MG TABLET PO SCH (08:44)
[2016-12-02] MEDS: FUROSEMIDE 40 MG/4 ML VIAL IV SCH (08:45)
--- NOTE | 2016-12-02 11:34 | Hospitalist Progress Note ---
Assessment and Plan (1) Anemia Status: Acute Assessment and plan: The patient has no visible bleeding and hemoglobin is stable at 10. I anticipate transfer to geriatric psychiatry on Sunday. Current Visit: Yes (2) Atrial fib/flutter, transient Status: Acute Current Visit: Yes (3) Generalized weakness Status: Acute Current Visit: Yes (4) Chronic anticoagulation Status: Chronic Current Visit: Yes Hospitalist: Subjective Interval history: Mrs. Stanford has cardiac disease and requires Eliquis. She has had difficulty with upper GI blood loss although a specific source has not been found. The patient had transfusion yesterday and hemoglobin is stable at 10. Exam - Constitutional Vitals: Period Temp Pulse Resp BP Sys/Wahl Pulse Ox Last 24 Hr 74 F-99.6 F 71-99 16-20 124-156/52-73 80-99 General appearance: no acute distress - Respiratory Respiratory exam: Present: clear to auscultation bilaterally - Cardiovascular Cardiovascular exam: Present: regular rate and rhythm - GI/Abdominal GI/Abdominal exam: Present: normal bowel sounds Results - Labs CBC & BMP: 12/02/16 04:12 12/02/16 04:12 Lab Results: I have reviewed the past 24 hour labs Quality Measures - VTE Contraindication to Pharmacological VTE Prophylaxis: Active Bleeding - Stroke Symptom Onset Unknown: No
[2016-12-02] MEDS: QUEtiapine 25 MG TABLET PO SCH ×2 (13:50→21:24)
[2016-12-02] MEDS: SODIUM CHLORIDE 0.9% 1,000 ML IV SCH (16:29)
[2016-12-02] MEDS ORDERED: CLORAZEPATE 3.75 MG TABLET PO ONE (18:26)
[2016-12-02] MEDS: POTASSIUM CHLORIDE 10 MEQ TABLET PO SCH (21:24)
[2016-12-02] MEDS: rOPINIRole 0.25 MG TABLET PO SCH (21:24)
[2016-12-03] MEDS: SODIUM CHLORIDE 0.9% 1,000 ML IV SCH ×2 (02:16→11:50)
[2016-12-03] MEDS: ALBUTEROL/IPRATROPIUM 3 ML NEB RESP TX SCH ×5 (03:00→20:50)
[2016-12-03 04:32] LABS: Basophils % 0.1 % (0.0-0.8); Eosinophils # 0.1 10*3/uL (0.0-0.87); Eosinophils % 0.7 % (0.00-10.9); Hematocrit 31.9 VOL% (35.7-47.0); Hemoglobin 9.8 GM/DL (12.0-16.0); Immature Granulocytes % 0.9 %; Immature Granulocytes Absolute 0.14 #; Lymphocytes # 1.8 10*3/uL (1.4-4.0); Lymphocytes % 12.1 % (21.3-54.2); Mean Corpuscular HGB Conc 30.7 GM/DL (32-36); Mean Corpuscular Hemoglobin 24 PG (27-34); Mean Corpuscular Volume 78.8 FL (87-102); Mean Platelet Volume 10.8 FL (9.6-12.0); Monocytes # 1.5 10*3/uL (0.11-0.8); Monocytes % 10.4 % (1.7-12.7); NRBC # 0.02 10*3/uL; Neutrophils # 11.2 10*3/uL (1.4-7.4); Neutrophils % 75.8 % (38.7-73.9); Platelet Count 323 T/CUMM (130-400); Red Blood Count 4.05 MC/CUMM (3.8-5.5); Red Cell Distribution Width 19.3 % (9.3-17.3); White Blood Count 14.7 T/CUMM (4-12)
[2016-12-03 05:02] LABS: Calcium 9.1 MG/DL (8.5-10.1); Magnesium 2.1 MG/DL (1.8-2.4); Osmolality,Calculated 276.7 MOS/KG (273-304); Potassium 3.4 MMOL/L (3.5-5.1)
[2016-12-03 05:06] LABS: Bilirubin,Direct 0.26 MG/DL (0.0-0.20); Bilirubin,Indirect 1.2 MG/DL (0.0-1.0); Bilirubin,Total 1.5 MG/DL (0.2-1.0); Total Protein 5.2 G/DL (6.4-8.3)
--- NOTE | 2016-12-03 07:19 | Gastrointestinal Progress Note ---
Assessment and Plan - Time spent with patient Time spent with patient: Greater than 30 minutes (1) Anemia Status: Acute Current Visit: Yes (2) Other specified counseling Status: Acute Current Visit: Yes Exam (Progress Note) - Constitutional Vitals: Period Temp Pulse Resp BP Sys/Wahl Pulse Ox Last 24 Hr 97 F-98.9 F 68-92 16-20 109-154/47-77 84-100 Results - Labs CBC & BMP: 12/03/16 03:39 12/03/16 03:39 Note Addendum: PLEASE NOTE -- automatic citation of patient information is unavoidable in this electronic note. I have made a reasonable effort to review the information cited , but it is not a part of my evaluation, impression, or recommendation unless specifically discussed in the dictated text that follows. As well, voice recognition software was used in the creation of this clinical note. Reasonable effort was made to identify and correct gross errors. Despite proofreading, errors in metallurgy teacher may be present, including nonsense verbiage at times. If you encounter such an error, please contact me at for discussion and correction. -- Huma Chief complaint: anemia Subjective: the patient is a 76-year-old female seen for follow-up of unexplained anemia. The patient has received a total of four units of packed red blood cells during this admission, most recently on Sunday. She had four bowel movements yesterday with no overt bleeding noted. Today she reports feeling "pretty good" with no abdominal pain or other discomfort. She is somewhat pressured in her speech and discussion with the nursing staff reveals this is baseline for her. Medications: Duoneb, Dulcolax, diltiazem, Lasix, hydrochlorothiazide, isosorbide mononitrate, lactulose, Lamictal, Zofran, Protonix, MiraLAX, potassium chloride, prednisone, circa well, Requip, Ultram, theophylline, normal saline infusion Review of Symptoms: 12 point review of symptoms was negative except as noted above Physical examination: Vital Signs: Current vital signs reviewed. General Appearance: lying in bed sleeping. Arousable. Somewhat anxious and pressured in her speech. Head: Normocephalic. Eyes: no scleral icterus. No scleral injection. No conjunctival pallor. Oral Cavity: Odor of breath was normal. No drooling was observed. Lips showed no abnormalities. Lungs: Respiration rhythm and depth was normal. Cardiovascular: Heart rate and rhythm were normal. Abdomen: abdomen was not distended. Abdominal auscultation revealed no abnormalities. Ascites was not discovered. Abdominal palpation revealed no tenderness and no hepatosplenomegaly. Musculoskeletal System: musculoskeletal system was grossly normal. Neurological: patient was arousable and responsive, appropriately, to questioning but somewhat pressured in her speech with intermittent verbalizations. Skin: Gen. appearance was normal. Color and pigmentation were normal. No skin lesions were appreciated. Laboratory: hemoglobin 9.8, MCV 79, platelets 323 Radiology: reviewed with no pertinent changes noted. Impressions: #1. Anemia -- blood counts are stable after transfusion. I recommend continued monitoring with further transfusion as indicated. If blood counts trended down, we will need to consider endoscopic evaluation. #2. Other specified counseling -- Patient seen for greater than 30 minutes. Greater than 50% of this time was spent counseling regarding differential diagnosis, likely diagnosis,, diagnostic and therapeutic options, risks, benefits, and alternatives to procedures and medications, informed consent, and plan of care generally. Patient has expressed understanding and wishes to proceed. Recommendations: -- continue monitoring blood counts with further transfusion as indicated -- continue volume management -- consider endoscopic evaluation depending on clinical progress -- we will continue to follow with you. Dr. Traylor will resume G.I. care for this patient tomorrow.
[2016-12-03] MEDS: DILTIAZEM CD 180 MG CAPSULE PO SCH (08:58)
[2016-12-03] MEDS: FUROSEMIDE 40 MG/4 ML VIAL IV SCH (08:58)
[2016-12-03] MEDS: ISOSORBIDE MONONITRATE 30 MG TABLET PO SCH (09:00)
[2016-12-03] MEDS: PANTOPRAZOLE 40 MG TABLET PO SCH (09:00)
[2016-12-03] MEDS: lamoTRIgine 25 MG TABLET PO SCH ×2 (09:00→21:43)
[2016-12-03] MEDS: predniSONE 10 MG TABLET PO SCH (09:01)
[2016-12-03] MEDS: hydroCHLOROthiazide 25 MG TABLET PO SCH (09:01)
[2016-12-03] MEDS: THEOPHYLLINE ER (24 HR) 400 MG TABLET PO SCH (09:01)
[2016-12-03] MEDS: QUEtiapine 25 MG TABLET PO SCH ×2 (10:23→21:46)
[2016-12-03] MEDS ORDERED: MAGNESIUM SULF RIDER 2 GM in PREMIX 1 EACH IV ONE (10:51)
--- NOTE | 2016-12-03 10:59 | Discharge Summary ---
Hospital Course - Hospital Course Hospital Course: The patient was admitted to the hospital with anemia. She takes Eliquis on account of her heart. There was no overt evidence of GI blood loss but there was occult positive stool. The patient had esophagogastroduodenoscopy without finding a source of her bleeding. The patient has had recent colonoscopy and this was not repeated. The patient had upper GI with small bowel follow- through and there was no lesion found. The patient received 4 units packed red blood cell transfusion. Hemoglobin stable at 10. The patient is now ready for discharge from the hospital and would benefit from transfer to geriatric psychiatry unit for further evaluation of her emotional state of anxiety related to dementia. On today's exam the chest is clear and abdomen is soft. Heart has regular rate and rhythm. Patient medications were reconciled upon admission, and again at the time of discharge. The patient was screened for tobacco use and found to be a previous smoker. The patient was given 4 minutes of tobacco avoidance education. The patient's medical decsion maker is the patient's daughter, and when asked, they asked to be DNR. Discharge Time was 34 minutes, including final examination, evaluation and planning, education, reconciliation of medications, writing prescriptions, coordinating care with case management assistant, and preparing discharge documentation. - Time spent with patient Time with patient DS: Greater than 30 minutes Time spent discussing smoking cessation with patient: 3 to 10 minutes Diagnosis - Discharge Diagnosis (1) Anemia Status: Chronic (2) Atrial fib/flutter, transient Status: Chronic (3) Generalized weakness Status: Chronic (4) Chronic anticoagulation Status: Chronic Discharge Plan - Discharge Data Disposition: Disch/Xfer to Psych Hos Condition at Discharge: Stable Discharge Diet: heart healthy Activity: resume usual activities as tolerated - Discharge Medications New Bisacodyl Supp [Dulcolax Supp] 20 mg RECTAL Q6H PRN supp PRN Reason: Constipation Isosorbide Mononitrate [Imdur] 15 mg PO DAILY tablet Lactulose Liquid [Chronulac] 20 gm PO TID PRN PRN Reason: Constipation Polyethylene Glycol Powder [Miralax] 17 gm PO Q6H PRN PRN Reason: Constipation QUEtiapine [SEROquel] 25 mg PO BID tablet Albuterol/Ipratropium Neb [Duoneb] 3 ml RESP TX RT Q4H Furosemide Tab [Lasix Tab] 40 mg PO DAILY #60 tablet Continue lamoTRIgine [Lamotrigine Tab] 25 mg PO BID Theophylline ER Tab (24 Hr) 400 mg PO QAM predniSONE TAB [PredniSONE] 10 mg PO QDX21D dilTIAZem HCl [Diltiazem ER (24 hr)] 360 mg PO QAM Tramadol HCl [Tramadol Tab] 50 mg PO TID PRN PRN Reason: Pain Pantoprazole Tab [Protonix Tab] 40 mg PO QAM Ipratropium/Albuterol Inhaler [Combivent Respimat Inhaler] 2 puff PO QID PRN PRN Reason: COPD Albuterol Sulfate [Ventolin HFA] 1 puff PO Q4H PRN PRN Reason: COPD hydroCHLOROthiazide [Hydrochlorothiazide] 25 mg PO QAM Dexlansoprazole [Dexilant] 60 mg PO QAM Apixaban [Eliquis] 5 mg PO BID #60 tablet rOPINIRole [Requip] 0.25 mg PO BEDTIME #30 tablet Potassium Chloride 10 meq PO BEDTIME Discontinued Linaclotide [Linzess] 290 mcg PO QAM Furosemide Tab [Lasix Tab] 10 mg PO QAM Aspirin EC Tab 81 mg PO QAM - Follow Up or Referral - Forms/Instructions Exam - Constitutional Vitals: Period Temp Pulse Resp BP Sys/Wahl Pulse Ox Last 24 Hr 97 F-98.9 F 64-92 16-20 109-154/47-77 88-100 Discharge Results Procedures and tests throughout hospitalization: Pending Orders 12/04/16 04:00 BMP w/ Mg [Basic Metabolic Panel w/Mg] IN AM CBC [Comp Blood Count Auto Diff] IN AM Labs on day of discharge: Labs from last 24 hours 12/03/16 12/03/16 12/03/16 03:39 03:39 03:39 WBC 14.7 H RBC 4.05 Hgb 9.8 L Hct 31.9 L MCV 78.8 L MCH 24 L MCHC 30.7 L RDW 19.3 H Plt Count 323 MPV 10.8 Neut % (Auto) 75.8 H Lymph % (Auto) 12.1 L [place] % (Auto) 10.4 Eos % (Auto) 0.7 Baso % (Auto) 0.1 Neut # (Auto) 11.2 H Lymph # (Auto) 1.8 [place] # (Auto) 1.5 H Eos # (Auto) 0.1 Baso # (Auto) 0.0 Immature Gran % 0.9 Nucleated RBC % 0.1 Immature Gran # 0.14 Nucleated RBCs # 0.02 Immature Plt Fraction 0.0 Sodium 138 Potassium 3.4 L Chloride 94 L Carbon Dioxide 40 H Anion Gap 7.4 BUN 16 Creatinine 0.40 L GFR Calculation 96 BUN/Creatinine Ratio 40.00 H Glucose 109 H Calculated Osmolality 276.7 Calcium 9.1 Magnesium 2.1 Total Bilirubin 1.50 H Direct Bilirubin 0.260 H Indirect Bilirubin 1.2 H AST 21 ALT 67 H Alkaline Phosphatase 60 Total Protein 5.2 L Albumin 3.0 L DS: Provider Date of admission: 11/28/16 08:38 Primary care physician: . No PCP Attending physician on admission: Carlo Deluca MD Consults: 11/27/16 22:29 Consult to Physician [CONS] Routine Comment: Elevated troponin Consulting Provider: Cardiology - [facility] When should Consulting Provider be notified: In am Consult to Physician [CONS] Routine Comment: Hemeoccult positive Consulting Provider: Magen Traylor 11/28/16 03:43 Consult to Pastoral Services [CONS] Routine Comment: Pastoral Screen: Request Hotel Manager Visit Pastoral Screen Source of Request: Patient 12/01/16 16:18 Consult to Physical Therapy [CONS] Routine Reason for Physical Therapy: Evaluate and Treat Consult Comment: COPD on O2, want help increasing ambulation. Discharging clinician: Chato Dunbar MD
[2016-12-03] MEDS: POTASSIUM CHLORIDE 10 MEQ TABLET PO SCH (21:40)
[2016-12-03] MEDS: rOPINIRole 0.25 MG TABLET PO SCH (21:44)
[2016-12-04] MEDS: ALBUTEROL/IPRATROPIUM 3 ML NEB RESP TX SCH ×4 (00:13→10:25)
[2016-12-04] MEDS: SODIUM CHLORIDE 0.9% 1,000 ML IV SCH (03:51)
[2016-12-04 05:12] LABS: Basophils % 0.3 % (0.0-0.8); Eosinophils # 0.2 10*3/uL (0.0-0.87); Eosinophils % 1.5 % (0.00-10.9); Hematocrit 33.3 VOL% (35.7-47.0); Hemoglobin 10.2 GM/DL (12.0-16.0); Immature Granulocytes % 0.7 %; Lymphocytes # 2.4 10*3/uL (1.4-4.0); Lymphocytes % 17.6 % (21.3-54.2); Mean Corpuscular HGB Conc 30.6 GM/DL (32-36); Mean Corpuscular Hemoglobin 24 PG (27-34); Mean Corpuscular Volume 79.7 FL (87-102); Mean Platelet Volume 10.4 FL (9.6-12.0); Monocytes # 1.2 10*3/uL (0.11-0.8); Monocytes % 8.9 % (1.7-12.7); Neutrophils # 9.6 10*3/uL (1.4-7.4); Platelet Count 320 T/CUMM (130-400); Red Blood Count 4.18 MC/CUMM (3.8-5.5); Red Cell Distribution Width 19.9 % (9.3-17.3); White Blood Count 13.6 T/CUMM (4-12)
[2016-12-04 05:48] LABS: Calcium 9.1 MG/DL (8.5-10.1); Magnesium 2.2 MG/DL (1.8-2.4); Osmolality,Calculated 274.8 MOS/KG (273-304); Potassium 3.6 MMOL/L (3.5-5.1)
[2016-12-04] MEDS: hydroCHLOROthiazide 25 MG TABLET PO SCH (09:42)
[2016-12-04] MEDS: predniSONE 10 MG TABLET PO SCH (09:43)
[2016-12-04] MEDS: QUEtiapine 25 MG TABLET PO SCH (09:43)
[2016-12-04] MEDS: lamoTRIgine 25 MG TABLET PO SCH (09:43)
[2016-12-04] MEDS: ISOSORBIDE MONONITRATE 30 MG TABLET PO SCH (09:43)
[2016-12-04] MEDS: DILTIAZEM CD 180 MG CAPSULE PO SCH (09:43)
[2016-12-04] MEDS: PANTOPRAZOLE 40 MG TABLET PO SCH (09:43)
[2016-12-04] MEDS: THEOPHYLLINE ER (24 HR) 400 MG TABLET PO SCH (09:43)
[2016-12-04] MEDS: FUROSEMIDE 40 MG/4 ML VIAL IV SCH (09:43)
--- NOTE | 2016-12-04 10:42 | Gastrointestinal Progress Note ---
Assessment and Plan (1) Anemia Status: Chronic Assessment and plan: 12/04-H&H is holding stable with no further bleeding. No complaints of pain. For discharge to [facility] unit when bed becomes available. Plan an addendum to followed by Dr. Traylor. 12/01-drop in hemoglobin noted. One small report of dark blood with small bowel movement today. No other complaints. We will plan to transfuse 2 units of packed red blood cells today. Plan an addendum to followed by Dr. Traylor. 11/30-small bowel follow-through results noted as below. No reports of overt bleeding. Unable to do small bowel endoscopy today. Plan an addendum to followed by Dr. Traylor. 11/28-admitted with low H&H from PCP office with reports of increased fatigue and weakness with shortness of breath over the last several weeks. no prior history of GI bleeding in the past. On Eliquis therapy for atrial fibrillation with last dose on Sunday. H&H 09/01 on admission, now 10/02 post transfusion. Heme positive stools. Obtain endoscopy records from [place]. Plan an addendum to followed by Dr. Traylor. Current Visit: Yes Gastroenterology - PN: Subj Interval history: CC: Anemia Patient is seen awake and alert sitting up in bed with family at side. So she had an uneventful night. Her hemoglobin has remained stable 10 with no further reports of bleeding. Patient denies any abdominal pain, nausea vomiting. She has received a total of 4 units of packed red blood cells since admission with her last transfusion 3 days ago. She is tolerating her diet well. She is currently waiting placement within a [facility] facility at this time and will be discharged as soon as this is obtained. Abdomen is soft, nontender. ROS: Denies shortness of breath or chest pain Exam (Progress Note) - Constitutional Vitals: Period Temp Pulse Resp BP Sys/Wahl Pulse Ox Last 24 Hr 97.3 F-99.6 F 54-88 16-20 123-154/53-95 92-100 General appearance: normal weight, no acute distress - Head Head exam: Present: normal inspection, normocephalic - Eye Eye exam: Present: other (Lids and conjunctivae are unremarkable). Absent: scleral icterus - ENT ENT exam: Present: normal exam, normal oropharynx - Neck Neck exam: Present: normal inspection - Respiratory Respiratory exam: Present: clear to auscultation bilaterally. Absent: rales, rhonchi, wheezes - Cardiovascular Cardiovascular exam: Present: regular rate and rhythm. Absent: diastolic murmur , JVD, systolic murmur - GI/Abdominal GI/Abdominal exam: Present: normal bowel sounds, soft. Absent: ascites, distended, mass, organomegaly, tenderness - Extremities Exam Extremities exam: Present: normal inspection, full ROM - Back Exam Back exam: Present: normal inspection - Neurological Exam Neurological exam: Present: alert, oriented X3 - Psychiatric Psychiatric exam: Present: normal affect, normal mood - Skin Skin exam: Present: normal color, warm, dry Results - Labs CBC & BMP: 12/04/16 04:18 12/04/16 04:18 Lab Results: I have reviewed the past 24 hour labs
[2016-12-04 11:59] VITALS: BP 117/70
== END 2016-12-04 13:04 | DRG 190 ==
LOC: N.ED 17:48 → N.EDINP 17:48 → SUATTDRO 20:42 → N.TELEN 23:36 → SUATTDRO 11-28 08:38
PROVIDERS: ADMIT Internal Medicine; ATTEND Family Medicine

== ENCOUNTER 2017-10-08 14:41 | Inpatient (IN) ==
[2017-10-08] MEDS ORDERED: ONDANSETRON 4 MG/2 ML VIAL IV PRN (17:13)
[2017-10-08 18:03] LABS: Calcium 9.1 MG/DL (8.5-10.1); Osmolality,Calculated 275.1 MOS/KG (273-304); Potassium 3.4 MMOL/L (3.5-5.1)
[2017-10-08 18:03] LABS: Apearance,Urine CLEAR (Clear); Bacteria,Urine Occasional /HPF (Few); Bilirubin,Urine Negative (Negative); Blood, Urine Small mg/dL (Negative); Glucose,Urine (UA) 50 mg/dL (Negative); Ketones,Urine Negative (Negative); Mucus,Urine Occasional /LPF (Occasional); Nitrite,Urine Negative (Negative); Protein,Urine 100 MG/DL; RBC,Urine 48 /HPF (0-4); Squamous Epithelial Cell,Urine Occasional /HPF (0-10); Urine Color Yellow (Yellow); Urine Specific Gravity 1.016 (1.001-1.035); Urine Urobilinogen < 2.0 EU/DL (0.2-1.0); WBC,Urine 2 /HPF (0-6)
[2017-10-08 18:11] LABS: Basophils % 0.1 % (0.0-0.8); Hematocrit 34.3 VOL% (35.7-47.0); Hemoglobin 8.9 GM/DL (12.0-16.0); Immature Granulocytes % 0.4 %; Immature Granulocytes Absolute 0.03 #; Lymphocytes # 0.4 10*3/uL (1.4-4.0); Lymphocytes % 5.1 % (21.3-54.2); Mean Corpuscular HGB Conc 25.9 GM/DL (32-36); Mean Corpuscular Hemoglobin 19 PG (27-34); Mean Corpuscular Volume 74.9 FL (87-102); Mean Platelet Volume 11.1 FL (9.6-12.0); Monocytes # 0.3 10*3/uL (0.11-0.8); Monocytes % 4.1 % (1.7-12.7); Neutrophils # 7.2 10*3/uL (1.4-7.4); Neutrophils % 90.3 % (38.7-73.9); Platelet Count 229 T/CUMM (130-400); Red Blood Count 4.58 MC/CUMM (3.8-5.5); Red Cell Distribution Width 18.9 % (9.3-17.3)
[2017-10-08] MEDS ORDERED: DEXTROSE 50% 25 GM/50 ML VIAL IV PRN (18:17)
[2017-10-08] MEDS ORDERED: POTASSIUM CHLORIDE 20 MEQ TABLET PO ONE (18:17)
[2017-10-08] MEDS ORDERED: GLUCAGON 1 MG VIAL IM PRN (18:17)
[2017-10-08] MEDS ORDERED: POTASSIUM CHLORIDE 20 MEQ TABLET PO PRN (18:18)
[2017-10-08 18:21] LABS: CKMB % 10.5 %
[2017-10-08] MEDS: ALBUTEROL/IPRATROPIUM 3 ML NEB RESP TX SCH ×2 (18:25→23:50)
[2017-10-08] MEDS ORDERED: LACTULOSE 20 GM/30 ML UDCUP PO PRN (18:39)
[2017-10-08] MEDS ORDERED: POLYETHYLENE GLYCOL POWDER 17 GM PACK PO PRN (18:39)
[2017-10-08] MEDS ORDERED: SODIUM CHLORIDE 0.65% NASAL SPRAY 45 ML BOTTLE BOTH NARES PRN (18:41)
[2017-10-08 18:54] LABS: Troponin I Only 3.32 NG/ML (0.00-0.045)
[2017-10-08] MEDS: LEVOFLOXACIN INJ 750 MG in PREMIX 1 EACH IV SCH (19:51)
[2017-10-08] MEDS: methylPREDNISolone SOD SUC 40 MG/1 ML VIAL IV SCH (19:52)
[2017-10-08] MEDS: FLUTICASONE/SALMETEROL 250-50 DISKUS 14 DOSE INH SCH (21:12)
[2017-10-08] MEDS: INSULIN REGULAR 100 UNIT/ML SUBCUT SCH (21:12)
[2017-10-08] MEDS: GABAPENTIN 100 MG CAPSULE PO SCH (21:13)
[2017-10-08] MEDS: POTASSIUM CHLORIDE 10 MEQ TABLET PO SCH (21:13)
[2017-10-08] MEDS: rOPINIRole 0.25 MG TABLET PO SCH (21:13)
[2017-10-08] MEDS: CARVEDILOL 3.125 MG TABLET PO SCH (21:14)
[2017-10-08] MEDS: QUEtiapine 25 MG TABLET PO SCH (21:14)
[2017-10-08] MEDS: lamoTRIgine 25 MG TABLET PO SCH (21:14)
[2017-10-08] MEDS: APIXABAN 5 MG TABLET PO SCH (21:14)
[2017-10-08 22:34] LABS: CKMB % 10.8 %
[2017-10-08 22:44] LABS: Troponin I Only 4.23 NG/ML (0.00-0.045)
[2017-10-09 01:05] LABS: Calcium 8.6 MG/DL (8.5-10.1); Osmolality,Calculated 277.8 MOS/KG (273-304); Risk Ratio 1.86; Thyroid Stimulating Hormone 0.922 uIU/ml (0.358-3.74); VLDL CHOLESTEROL 11.8 MG/DL
[2017-10-09 01:32] LABS: Basophils % 0.1 % (0.0-0.8); Hematocrit 33.4 VOL% (35.7-47.0); Hemoglobin 8.8 GM/DL (12.0-16.0); Immature Granulocytes % 0.8 %; Immature Granulocytes Absolute 0.07 #; Lymphocytes # 0.4 10*3/uL (1.4-4.0); Lymphocytes % 4.2 % (21.3-54.2); Mean Corpuscular HGB Conc 26.3 GM/DL (32-36); Mean Corpuscular Hemoglobin 19 PG (27-34); Mean Corpuscular Volume 73.4 FL (87-102); Mean Platelet Volume 10.6 FL (9.6-12.0); Monocytes # 0.4 10*3/uL (0.11-0.8); Neutrophils # 7.5 10*3/uL (1.4-7.4); Neutrophils % 89.9 % (38.7-73.9); Platelet Count 227 T/CUMM (130-400); Red Blood Count 4.55 MC/CUMM (3.8-5.5); Red Cell Distribution Width 18.8 % (9.3-17.3); White Blood Count 8.3 T/CUMM (4-12)
[2017-10-09] MEDS: NITROGLYCERIN 2% OINT 1 INCH/GM PACK TOP SCH ×4 (01:37→17:40)
[2017-10-09] MEDS: methylPREDNISolone SOD SUC 40 MG/1 ML VIAL IV SCH ×3 (03:17→18:16)
[2017-10-09] MEDS: ALBUTEROL/IPRATROPIUM 3 ML NEB RESP TX SCH ×6 (04:02→23:34)
[2017-10-09 04:23] LABS: Band Neutrophils 2 % (0-10); Lymphocytes 3 % (20-55); Platelet Estimate Normal; Segmented Neutrophils 91 % (50-85); Total Cells Counted 100
[2017-10-09 05:28] LABS: CKMB % 9.9 %
[2017-10-09 05:29] LABS: Troponin I Only 3.02 NG/ML (0.00-0.045)
[2017-10-09] MEDS: INSULIN REGULAR 100 UNIT/ML SUBCUT SCH ×4 (08:23→22:15)
[2017-10-09] MEDS: ASPIRIN EC 81 MG TABLET PO SCH (08:32)
[2017-10-09] MEDS: DILTIAZEM CD 180 MG CAPSULE PO SCH (08:32)
[2017-10-09] MEDS: IRON (CARBONYL)/VIT C/B12/FA TABLET PO SCH (08:33)
[2017-10-09] MEDS: QUEtiapine 25 MG TABLET PO SCH ×2 (08:33→20:48)
[2017-10-09] MEDS: PANTOPRAZOLE 40 MG TABLET PO SCH (08:33)
[2017-10-09] MEDS: CARVEDILOL 3.125 MG TABLET PO SCH ×2 (08:33→16:37)
[2017-10-09] MEDS: lamoTRIgine 25 MG TABLET PO SCH ×2 (08:33→20:54)
[2017-10-09] MEDS: APIXABAN 5 MG TABLET PO SCH (08:33)
[2017-10-09] MEDS: THEOPHYLLINE ER (24 HR) 400 MG TABLET PO SCH (08:33)
[2017-10-09] MEDS: FLUTICASONE/SALMETEROL 250-50 DISKUS 14 DOSE INH SCH ×2 (08:34→20:49)
[2017-10-09] MEDS: FLUTICASONE 50 MCG NASAL SPRAY 16 GM BOTTLE BOTH NARES SCH (08:34)
[2017-10-09] MEDS ORDERED: FUROSEMIDE 40 MG TABLET PO SCH (09:00)
[2017-10-09] MEDS ORDERED: PANTOPRAZOLE 40 MG TABLET PO SCH (09:00)
[2017-10-09] MEDS ORDERED: ISOSORBIDE MONONITRATE 30 MG TABLET PO SCH (09:00)
[2017-10-09 09:55] LABS: % Iron Saturation 6.1 % (18-50); Ferritin 9.3 ng/ml (8-252)
[2017-10-09] MEDS: GABAPENTIN 100 MG CAPSULE PO SCH ×2 (15:58→20:48)
[2017-10-09] MEDS: FUROSEMIDE 20 MG/2 ML VIAL IV SCH (15:58)
[2017-10-09] MEDS: LEVOFLOXACIN INJ 750 MG in PREMIX 1 EACH IV SCH (17:47)
[2017-10-09] MEDS: POTASSIUM CHLORIDE 10 MEQ TABLET PO SCH (20:48)
[2017-10-09] MEDS: rOPINIRole 0.25 MG TABLET PO SCH (20:48)
[2017-10-10] MEDS: NITROGLYCERIN 2% OINT 1 INCH/GM PACK TOP SCH ×4 (01:05→17:53)
[2017-10-10] MEDS: ALBUTEROL/IPRATROPIUM 3 ML NEB RESP TX SCH ×6 (04:00→23:32)
[2017-10-10 04:10] LABS: Hematocrit 33.8 VOL% (35.7-47.0); Hemoglobin 8.7 GM/DL (12.0-16.0); Immature Granulocytes % 0.9 %; Immature Granulocytes Absolute 0.07 #; Lymphocytes # 0.4 10*3/uL (1.4-4.0); Lymphocytes % 4.4 % (21.3-54.2); Mean Corpuscular HGB Conc 25.7 GM/DL (32-36); Mean Corpuscular Hemoglobin 19 PG (27-34); Mean Corpuscular Volume 75.1 FL (87-102); Mean Platelet Volume 10.6 FL (9.6-12.0); Monocytes # 0.3 10*3/uL (0.11-0.8); Monocytes % 3.8 % (1.7-12.7); Neutrophils # 7.2 10*3/uL (1.4-7.4); Neutrophils % 90.9 % (38.7-73.9); Platelet Count 231 T/CUMM (130-400); Red Cell Distribution Width 18.5 % (9.3-17.3); White Blood Count 7.9 T/CUMM (4-12)
[2017-10-10 04:18] LABS: INR 1.2
[2017-10-10] MEDS: methylPREDNISolone SOD SUC 40 MG/1 ML VIAL IV SCH ×3 (04:21→21:21)
[2017-10-10 04:32] LABS: Anisocytosis 1+; Hypochromasia 2+; Poikilocytosis 2+
[2017-10-10 04:33] LABS: Acanthocytes 1+; Target Cells 1+
[2017-10-10 04:34] LABS: Polychromasia Slight
[2017-10-10 04:36] LABS: Calcium 8.9 MG/DL (8.5-10.1); Potassium 4.4 MMOL/L (3.5-5.1)
[2017-10-10 04:59] LABS: Lymphocytes 5 % (20-55); Segmented Neutrophils 91 % (50-85); Total Cells Counted 100
[2017-10-10] MEDS ORDERED: diphenhydrAMINE CAP 25 MG CAPSULE PO ONE (09:57)
[2017-10-10] MEDS ORDERED: DIAZEPAM 5 MG TABLET PO ONE (09:57)
[2017-10-10] MEDS: CARVEDILOL 3.125 MG TABLET PO SCH ×2 (10:28→16:34)
[2017-10-10] MEDS: DILTIAZEM CD 180 MG CAPSULE PO SCH (10:28)
[2017-10-10] MEDS: INSULIN REGULAR 100 UNIT/ML SUBCUT SCH ×4 (10:29→21:21)
[2017-10-10] MEDS: IRON (CARBONYL)/VIT C/B12/FA TABLET PO SCH (10:29)
[2017-10-10] MEDS: QUEtiapine 25 MG TABLET PO SCH ×2 (10:29→21:21)
[2017-10-10] MEDS: FLUTICASONE 50 MCG NASAL SPRAY 16 GM BOTTLE BOTH NARES SCH (10:29)
[2017-10-10] MEDS: FLUTICASONE/SALMETEROL 250-50 DISKUS 14 DOSE INH SCH ×2 (10:29→22:47)
[2017-10-10] MEDS: THEOPHYLLINE ER (24 HR) 400 MG TABLET PO SCH (10:29)
[2017-10-10] MEDS: PANTOPRAZOLE 40 MG TABLET PO SCH (10:29)
[2017-10-10] MEDS: lamoTRIgine 25 MG TABLET PO SCH ×2 (10:29→21:21)
[2017-10-10] MEDS: ASPIRIN EC 81 MG TABLET PO SCH (10:29)
[2017-10-10] MEDS: FUROSEMIDE 20 MG/2 ML VIAL IV SCH ×2 (10:34→16:34)
[2017-10-10] MEDS: GABAPENTIN 100 MG CAPSULE PO SCH ×2 (16:34→21:21)
[2017-10-10] MEDS: LEVOFLOXACIN INJ 750 MG in PREMIX 1 EACH IV SCH (18:34)
[2017-10-10] MEDS: rOPINIRole 0.25 MG TABLET PO SCH (21:21)
[2017-10-10] MEDS: POTASSIUM CHLORIDE 10 MEQ TABLET PO SCH (21:21)
[2017-10-10] MEDS: SODIUM CHLORIDE 0.9% 1,000 ML IV SCH (23:30)
[2017-10-10] MEDS: traMADol 50 MG TABLET PO PRN (23:30)
[2017-10-11] MEDS: NITROGLYCERIN 2% OINT 1 INCH/GM PACK TOP SCH ×2 (01:07→06:37)
[2017-10-11] MEDS: ALBUTEROL/IPRATROPIUM 3 ML NEB RESP TX SCH ×5 (03:35→20:20)
[2017-10-11] MEDS: methylPREDNISolone SOD SUC 40 MG/1 ML VIAL IV SCH ×3 (04:05→18:08)
[2017-10-11 04:17] LABS: Blood Urea Nitrogen 35 MG/DL (7-18); Calcium 8.7 MG/DL (8.5-10.1); Glucose 136 MG/DL (74-106); Potassium 4.7 MMOL/L (3.5-5.1); Sodium 136 MMOL/L (136-145)
[2017-10-11 04:20] LABS: Hematocrit 33.5 VOL% (35.7-47.0); Hemoglobin 8.7 GM/DL (12.0-16.0); Immature Granulocytes % 1.1 %; Immature Granulocytes Absolute 0.08 #; Lymphocytes # 0.4 10*3/uL (1.4-4.0); Lymphocytes % 5.2 % (21.3-54.2); Mean Corpuscular Hemoglobin 20 PG (27-34); Mean Corpuscular Volume 76.1 FL (87-102); Mean Platelet Volume 10.7 FL (9.6-12.0); Monocytes # 0.3 10*3/uL (0.11-0.8); Monocytes % 4.1 % (1.7-12.7); Neutrophils # 6.3 10*3/uL (1.4-7.4); Neutrophils % 89.6 % (38.7-73.9); Platelet Count 207 T/CUMM (130-400); Red Cell Distribution Width 18.3 % (9.3-17.3)
[2017-10-11 04:42] LABS: Hypochromasia 1+
[2017-10-11 04:43] LABS: Platelet Estimate Adequate
[2017-10-11] MEDS ORDERED: HEPARIN/NACL 0.9% 2 UNITS/ML 1,000 ML IV ONE (06:46)
[2017-10-11] MEDS ORDERED: diphenhydrAMINE CAP 50 MG CAPSULE ONE (07:16)
[2017-10-11] MEDS ORDERED: DIAZEPAM 5 MG TABLET ONE (07:16)
[2017-10-11] MEDS: CARVEDILOL 3.125 MG TABLET PO SCH ×2 (07:20→18:15)
[2017-10-11] MEDS: ASPIRIN EC 81 MG TABLET PO SCH ×2 (07:20→10:46)
[2017-10-11] MEDS: DILTIAZEM CD 180 MG CAPSULE PO SCH ×2 (07:20→10:46)
[2017-10-11] MEDS: PANTOPRAZOLE 40 MG TABLET PO SCH ×2 (07:20→10:46)
[2017-10-11] MEDS ORDERED: diphenhydrAMINE CAP 25 MG CAPSULE ONE (07:22)
[2017-10-11] MEDS: INSULIN REGULAR 100 UNIT/ML SUBCUT SCH ×4 (07:34→21:33)
[2017-10-11] MEDS ORDERED: fentaNYL 100 MCG/2 ML VIAL ONE (07:52)
[2017-10-11] MEDS ORDERED: HYDROmorphone 2 MG/1 ML VIAL ONE (07:52)
[2017-10-11] MEDS ORDERED: MIDAZOLAM 2 MG/2 ML VIAL ONE (07:52)
[2017-10-11] MEDS ORDERED: BIVALIRUDIN 250 MG VIAL IV ONE (08:50)
[2017-10-11] MEDS ORDERED: TICAGRELOR 90 MG TABLET ONE (09:13)
[2017-10-11] MEDS ORDERED: NITROGLYCERIN SL 0.4 MG TABLET SL PRN (09:21)
[2017-10-11] MEDS: IRON (CARBONYL)/VIT C/B12/FA TABLET PO SCH (10:47)
[2017-10-11] MEDS: FUROSEMIDE 20 MG/2 ML VIAL IV SCH ×2 (11:08→15:07)
[2017-10-11] MEDS: QUEtiapine 25 MG TABLET PO SCH ×2 (11:11→20:09)
[2017-10-11] MEDS: lamoTRIgine 25 MG TABLET PO SCH ×2 (11:11→20:09)
[2017-10-11] MEDS: THEOPHYLLINE ER (24 HR) 400 MG TABLET PO SCH (11:11)
[2017-10-11] MEDS: FLUTICASONE 50 MCG NASAL SPRAY 16 GM BOTTLE BOTH NARES SCH (11:12)
[2017-10-11] MEDS: FLUTICASONE/SALMETEROL 250-50 DISKUS 14 DOSE INH SCH ×2 (11:12→20:09)
[2017-10-11] MEDS ORDERED: TUBERCULIN SKIN TEST 0.1 ML SYRINGE INTRADERM ONE (14:40)
[2017-10-11] MEDS: GABAPENTIN 100 MG CAPSULE PO SCH ×2 (15:06→20:08)
[2017-10-11] MEDS: traMADol 50 MG TABLET PO PRN (15:06)
[2017-10-11] MEDS: SODIUM CHLORIDE 0.9% 1,000 ML IV SCH ×2 (15:07→22:01)
[2017-10-11] MEDS: LEVOFLOXACIN INJ 750 MG in PREMIX 1 EACH IV SCH (18:14)
[2017-10-11] MEDS: TICAGRELOR 90 MG TABLET PO SCH (20:08)
[2017-10-11] MEDS: rOPINIRole 0.25 MG TABLET PO SCH (20:09)
[2017-10-11] MEDS: POTASSIUM CHLORIDE 10 MEQ TABLET PO SCH (20:12)
[2017-10-12] MEDS: ALBUTEROL/IPRATROPIUM 3 ML NEB RESP TX SCH ×7 (00:10→22:58)
[2017-10-12] MEDS: methylPREDNISolone SOD SUC 40 MG/1 ML VIAL IV SCH ×3 (05:28→18:51)
[2017-10-12] MEDS: SODIUM CHLORIDE 0.9% 1,000 ML IV SCH (05:29)
[2017-10-12 06:16] LABS: Basophils % 0.1 % (0.0-0.8); Immature Granulocytes % 1.3 %; Immature Granulocytes Absolute 0.09 #; Lymphocytes # 0.3 10*3/uL (1.4-4.0); Lymphocytes % 3.9 % (21.3-54.2); Mean Corpuscular HGB Conc 25.9 GM/DL (32-36); Mean Corpuscular Hemoglobin 20 PG (27-34); Mean Corpuscular Volume 75.2 FL (87-102); Mean Platelet Volume 10.9 FL (9.6-12.0); Monocytes # 0.3 10*3/uL (0.11-0.8); Monocytes % 4.6 % (1.7-12.7); Neutrophils # 6.5 10*3/uL (1.4-7.4); Neutrophils % 90.1 % (38.7-73.9); Platelet Count 218 T/CUMM (130-400); Red Blood Count 4.72 MC/CUMM (3.8-5.5); Red Cell Distribution Width 18.7 % (9.3-17.3); White Blood Count 7.2 T/CUMM (4-12)
[2017-10-12 06:18] LABS: Hematocrit 35.3 VOL% (35.7-47.0); Hemoglobin 9.2 GM/DL (12.0-16.0)
[2017-10-12 06:38] LABS: Band Neutrophils 2 % (0-10); Giant Platelets Few; Hypochromasia 1+; Lymphocytes 7 % (20-55); Nucleated Red Blood Cells 1 (0-5); Platelet Estimate Adequate; Segmented Neutrophils 89 % (50-85); Total Cells Counted 100
[2017-10-12 07:10] LABS: Blood Urea Nitrogen 34 MG/DL (7-18); Calcium 8.7 MG/DL (8.5-10.1); Glucose 110 MG/DL (74-106); Potassium 4.4 MMOL/L (3.5-5.1); Sodium 136 MMOL/L (136-145)
[2017-10-12 07:11] LABS: Troponin I Only 0.957 NG/ML (0.00-0.045)
[2017-10-12] MEDS: INSULIN REGULAR 100 UNIT/ML SUBCUT SCH ×4 (09:04→20:47)
[2017-10-12] MEDS: FUROSEMIDE 20 MG/2 ML VIAL IV SCH ×2 (09:05→16:08)
[2017-10-12] MEDS: DILTIAZEM CD 180 MG CAPSULE PO SCH (09:05)
[2017-10-12] MEDS: TICAGRELOR 90 MG TABLET PO SCH ×2 (09:06→20:40)
[2017-10-12] MEDS: ASPIRIN EC 81 MG TABLET PO SCH (09:06)
[2017-10-12] MEDS: CARVEDILOL 3.125 MG TABLET PO SCH (09:06)
[2017-10-12] MEDS: IRON (CARBONYL)/VIT C/B12/FA TABLET PO SCH (09:06)
[2017-10-12] MEDS: lamoTRIgine 25 MG TABLET PO SCH ×2 (09:06→20:44)
[2017-10-12] MEDS: QUEtiapine 25 MG TABLET PO SCH ×2 (09:06→20:40)
[2017-10-12] MEDS: PANTOPRAZOLE 40 MG TABLET PO SCH (09:06)
[2017-10-12] MEDS: THEOPHYLLINE ER (24 HR) 400 MG TABLET PO SCH (09:06)
[2017-10-12] MEDS: FLUTICASONE/SALMETEROL 250-50 DISKUS 14 DOSE INH SCH ×2 (09:07→20:47)
[2017-10-12] MEDS: FLUTICASONE 50 MCG NASAL SPRAY 16 GM BOTTLE BOTH NARES SCH (09:07)
[2017-10-12] MEDS: ROSUVASTATIN 20 MG TABLET PO SCH (09:15)
[2017-10-12] MEDS ORDERED: CARVEDILOL 3.125 MG TABLET PO SCH (09:33)
[2017-10-12] MEDS: GABAPENTIN 100 MG CAPSULE PO SCH ×2 (16:09→20:41)
[2017-10-12] MEDS: LEVOFLOXACIN INJ 750 MG in PREMIX 1 EACH IV SCH (17:45)
[2017-10-12] MEDS: POTASSIUM CHLORIDE 10 MEQ TABLET PO SCH (20:40)
[2017-10-12] MEDS: rOPINIRole 0.25 MG TABLET PO SCH (20:41)
[2017-10-13] MEDS: ALBUTEROL/IPRATROPIUM 3 ML NEB RESP TX SCH ×6 (02:45→23:55)
[2017-10-13] MEDS: methylPREDNISolone SOD SUC 40 MG/1 ML VIAL IV SCH ×3 (02:59→19:04)
[2017-10-13 06:17] LABS: Basophils % 0.1 % (0.0-0.8); Hematocrit 34.2 VOL% (35.7-47.0); Hemoglobin 8.9 GM/DL (12.0-16.0); Immature Granulocytes % 3.5 %; Immature Granulocytes Absolute 0.34 #; Lymphocytes # 0.2 10*3/uL (1.4-4.0); Lymphocytes % 2.5 % (21.3-54.2); Mean Corpuscular Hemoglobin 20 PG (27-34); Mean Corpuscular Volume 76.3 FL (87-102); Mean Platelet Volume 11.5 FL (9.6-12.0); Monocytes # 0.4 10*3/uL (0.11-0.8); Monocytes % 3.7 % (1.7-12.7); Neutrophils # 8.7 10*3/uL (1.4-7.4); Neutrophils % 90.2 % (38.7-73.9); Platelet Count 243 T/CUMM (130-400); Red Blood Count 4.48 MC/CUMM (3.8-5.5); Red Cell Distribution Width 18.6 % (9.3-17.3); White Blood Count 9.7 T/CUMM (4-12)
[2017-10-13 06:23] LABS: Band Neutrophils 2 % (0-10); Lymphocytes 5 % (20-55); Nucleated Red Blood Cells 1 (0-5); Platelet Estimate Normal; Segmented Neutrophils 92 % (50-85); Total Cells Counted 100
[2017-10-13 06:24] LABS: Anisocytosis 2+; Poikilocytosis 1+; Polychromasia 1+; Target Cells Few
[2017-10-13 06:36] LABS: Blood Urea Nitrogen 31 MG/DL (7-18); Calcium 8.6 MG/DL (8.5-10.1); Glucose 164 MG/DL (74-106); Osmolality,Calculated 287.5 MOS/KG (273-304); Potassium 4.2 MMOL/L (3.5-5.1); Sodium 139 MMOL/L (136-145)
[2017-10-13] MEDS: INSULIN REGULAR 100 UNIT/ML SUBCUT SCH ×4 (08:03→21:19)
[2017-10-13] MEDS: IRON (CARBONYL)/VIT C/B12/FA TABLET PO SCH (09:06)
[2017-10-13] MEDS: ASPIRIN EC 81 MG TABLET PO SCH (09:06)
[2017-10-13] MEDS: PANTOPRAZOLE 40 MG TABLET PO SCH (09:06)
[2017-10-13] MEDS: ROSUVASTATIN 20 MG TABLET PO SCH (09:06)
[2017-10-13] MEDS: QUEtiapine 25 MG TABLET PO SCH ×2 (09:06→21:18)
[2017-10-13] MEDS: NEBIVOLOL 5 MG TABLET PO SCH (09:06)
[2017-10-13] MEDS: THEOPHYLLINE ER (24 HR) 400 MG TABLET PO SCH (09:06)
[2017-10-13] MEDS: SACUBITRIL/VALSARTAN 49-51 MG TABLET PO SCH ×2 (09:07→21:18)
[2017-10-13] MEDS: FUROSEMIDE 20 MG/2 ML VIAL IV SCH ×2 (09:07→17:38)
[2017-10-13] MEDS: TICAGRELOR 90 MG TABLET PO SCH ×2 (09:07→21:18)
[2017-10-13] MEDS: lamoTRIgine 25 MG TABLET PO SCH ×2 (09:07→21:18)
[2017-10-13] MEDS: FLUTICASONE/SALMETEROL 250-50 DISKUS 14 DOSE INH SCH ×2 (09:09→21:19)
[2017-10-13] MEDS: FLUTICASONE 50 MCG NASAL SPRAY 16 GM BOTTLE BOTH NARES SCH (09:09)
[2017-10-13] MEDS: GABAPENTIN 100 MG CAPSULE PO SCH ×2 (17:38→21:18)
[2017-10-13] MEDS: LEVOFLOXACIN INJ 750 MG in PREMIX 1 EACH IV SCH (18:51)
[2017-10-13] MEDS: POTASSIUM CHLORIDE 10 MEQ TABLET PO SCH (21:18)
[2017-10-13] MEDS: rOPINIRole 0.25 MG TABLET PO SCH (21:18)
[2017-10-13] MEDS: traMADol 50 MG TABLET PO PRN (21:18)
[2017-10-14] MEDS: methylPREDNISolone SOD SUC 40 MG/1 ML VIAL IV SCH ×2 (03:20→21:08)
[2017-10-14] MEDS: ALBUTEROL/IPRATROPIUM 3 ML NEB RESP TX SCH ×6 (04:18→23:51)
[2017-10-14 05:27] LABS: Basophils % 0.1 % (0.0-0.8); Hematocrit 38.2 VOL% (35.7-47.0); Immature Granulocytes % 2.1 %; Lymphocytes # 0.5 10*3/uL (1.4-4.0); Lymphocytes % 3.4 % (21.3-54.2); Mean Corpuscular HGB Conc 25.7 GM/DL (32-36); Mean Corpuscular Hemoglobin 20 PG (27-34); Mean Corpuscular Volume 77.2 FL (87-102); Mean Platelet Volume 11.1 FL (9.6-12.0); Monocytes # 1.2 10*3/uL (0.11-0.8); Monocytes % 8.7 % (1.7-12.7); NRBC # 0.02 10*3/uL; Neutrophils # 12.2 10*3/uL (1.4-7.4); Neutrophils % 85.7 % (38.7-73.9); Platelet Count 301 T/CUMM (130-400); Red Blood Count 4.95 MC/CUMM (3.8-5.5); Red Cell Distribution Width 19.5 % (9.3-17.3); White Blood Count 14.2 T/CUMM (4-12)
[2017-10-14 05:58] LABS: Hemoglobin 9.9 GM/DL (12.0-16.0)
[2017-10-14 06:15] LABS: Band Neutrophils 2 % (0-10); Lymphocytes 5 % (20-55); Segmented Neutrophils 88 % (50-85); Total Cells Counted 100
[2017-10-14 06:16] LABS: Anisocytosis 1+; Platelet Estimate Normal
[2017-10-14 06:17] LABS: Basophilic Stippling Slight
[2017-10-14 06:27] LABS: Blood Urea Nitrogen 29 MG/DL (7-18); Calcium 8.1 MG/DL (8.5-10.1); Glucose 133 MG/DL (74-106); Osmolality,Calculated 284.5 MOS/KG (273-304); Potassium 4.1 MMOL/L (3.5-5.1); Sodium 139 MMOL/L (136-145)
[2017-10-14] MEDS: INSULIN REGULAR 100 UNIT/ML SUBCUT SCH ×4 (08:48→21:19)
[2017-10-14] MEDS: ROSUVASTATIN 20 MG TABLET PO SCH (08:50)
[2017-10-14] MEDS: TICAGRELOR 90 MG TABLET PO SCH ×2 (08:50→21:08)
[2017-10-14] MEDS: FUROSEMIDE 20 MG/2 ML VIAL IV SCH ×2 (08:50→16:54)
[2017-10-14] MEDS: lamoTRIgine 25 MG TABLET PO SCH ×2 (08:50→21:08)
[2017-10-14] MEDS: ASPIRIN EC 81 MG TABLET PO SCH (08:50)
[2017-10-14] MEDS: QUEtiapine 25 MG TABLET PO SCH ×2 (08:50→21:08)
[2017-10-14] MEDS: SACUBITRIL/VALSARTAN 49-51 MG TABLET PO SCH ×2 (08:51→21:08)
[2017-10-14] MEDS: THEOPHYLLINE ER (24 HR) 400 MG TABLET PO SCH (08:51)
[2017-10-14] MEDS: NEBIVOLOL 5 MG TABLET PO SCH (08:51)
[2017-10-14] MEDS: IRON (CARBONYL)/VIT C/B12/FA TABLET PO SCH (08:51)
[2017-10-14] MEDS: PANTOPRAZOLE 40 MG TABLET PO SCH (08:51)
[2017-10-14] MEDS: FLUTICASONE 50 MCG NASAL SPRAY 16 GM BOTTLE BOTH NARES SCH (08:51)
[2017-10-14] MEDS: FLUTICASONE/SALMETEROL 250-50 DISKUS 14 DOSE INH SCH ×2 (08:52→21:10)
[2017-10-14] MEDS: GABAPENTIN 100 MG CAPSULE PO SCH ×2 (16:54→21:08)
[2017-10-14] MEDS: LEVOFLOXACIN INJ 750 MG in PREMIX 1 EACH IV SCH (17:55)
[2017-10-14] MEDS: rOPINIRole 0.25 MG TABLET PO SCH (21:08)
[2017-10-14] MEDS: POTASSIUM CHLORIDE 10 MEQ TABLET PO SCH (21:08)
[2017-10-15 04:21] LABS: Basophils % 0.1 % (0.0-0.8); Eosinophils % 0.2 % (0.00-10.9); Hematocrit 40.4 VOL% (35.7-47.0); Immature Granulocytes % 1.2 %; Immature Granulocytes Absolute 0.21 #; Lymphocytes # 0.9 10*3/uL (1.4-4.0); Lymphocytes % 5.4 % (21.3-54.2); Mean Corpuscular Hemoglobin 20 PG (27-34); Mean Corpuscular Volume 79.8 FL (87-102); Mean Platelet Volume 10.7 FL (9.6-12.0); Monocytes # 2.2 10*3/uL (0.11-0.8); Monocytes % 12.7 % (1.7-12.7); Neutrophils # 13.8 10*3/uL (1.4-7.4); Neutrophils % 80.4 % (38.7-73.9); Platelet Count 264 T/CUMM (130-400); Red Blood Count 5.06 MC/CUMM (3.8-5.5); Red Cell Distribution Width 19.7 % (9.3-17.3); White Blood Count 17.1 T/CUMM (4-12)
[2017-10-15 04:22] LABS: Hemoglobin 10.1 GM/DL (12.0-16.0)
[2017-10-15 04:27] LABS: Platelet Estimate Normal
[2017-10-15 04:28] LABS: Calcium 8.4 MG/DL (8.5-10.1); Osmolality,Calculated 284.7 MOS/KG (273-304); Potassium 4.6 MMOL/L (3.5-5.1)
[2017-10-15 04:29] LABS: Atypical Lymphocytes Few; Microcytosis 1+
[2017-10-15] MEDS: ALBUTEROL/IPRATROPIUM 3 ML NEB RESP TX SCH ×3 (04:43→10:46)
[2017-10-15] MEDS: ROSUVASTATIN 20 MG TABLET PO SCH (09:51)
[2017-10-15] MEDS: SACUBITRIL/VALSARTAN 49-51 MG TABLET PO SCH (09:51)
[2017-10-15] MEDS: IRON (CARBONYL)/VIT C/B12/FA TABLET PO SCH (09:51)
[2017-10-15] MEDS: lamoTRIgine 25 MG TABLET PO SCH (09:51)
[2017-10-15] MEDS: TICAGRELOR 90 MG TABLET PO SCH (09:52)
[2017-10-15] MEDS: NEBIVOLOL 5 MG TABLET PO SCH (09:52)
[2017-10-15] MEDS: FUROSEMIDE 20 MG/2 ML VIAL IV SCH (09:52)
[2017-10-15] MEDS: methylPREDNISolone SOD SUC 40 MG/1 ML VIAL IV SCH (09:52)
[2017-10-15] MEDS: ASPIRIN EC 81 MG TABLET PO SCH (09:52)
[2017-10-15] MEDS: PANTOPRAZOLE 40 MG TABLET PO SCH (09:52)
[2017-10-15] MEDS: QUEtiapine 25 MG TABLET PO SCH (09:52)
[2017-10-15] MEDS: THEOPHYLLINE ER (24 HR) 400 MG TABLET PO SCH (09:52)
[2017-10-15] MEDS: FLUTICASONE/SALMETEROL 250-50 DISKUS 14 DOSE INH SCH (09:53)
[2017-10-15] MEDS: FLUTICASONE 50 MCG NASAL SPRAY 16 GM BOTTLE BOTH NARES SCH (10:05)
[2017-10-15] MEDS: INSULIN REGULAR 100 UNIT/ML SUBCUT SCH (10:05)
[2017-10-15 12:36] VITALS: BP 81/56
== END 2017-10-15 12:36 | disposition swing bed (61) | DRG 248 ==
LOC: N.TELES 16:19 → SUATTDRO 16:19 → INTOOBSV 16:19 → SUATTDRO 10-09 08:35
PROVIDERS: ADMIT Internal Medicine; ATTEND Hospitalist
PROC: CLCCHCL (ICD-10-PCS; 2017-10-11 08:15)